=== PATIENT | male | born 1930 | race Caucasian/White ===

== ENCOUNTER 2017-10-12 06:49 | Inpatient (IN) | payer BC ==
[~2017-10-12] VITALS: Ht 175.3 cm; Wt 74.4 kg
[2017-10-12] VITALS (9 sets, daily range): BP systolic 122–143; BP diastolic 51–78
--- NOTE | 2017-10-12 07:00 | NUR ---
TO BED 7 AN 89 YO MALE PATIENT BIBRA 881 FROM [facility] FOR WITNESSED GLF. PT C/O LEFT ELBOW AND L WRIST PAIN, NOTED ABDRASION AND BUMP POSTERIOR HEAD. LEFT LEG SHORTENING. VSS. NAD NOTED. PLACED ON CARDIAC AND VS MONITORING. COMFORT MEASURES RENDEERED.
[2017-10-12] MEDS ORDERED: QUET25TA PO (07:06)
[2017-10-12] MEDS ORDERED: MELA3TAB PO (07:06)
[2017-10-12] MEDS ORDERED: NAPH15DR EACHEYE (07:06)
[2017-10-12] MEDS ORDERED: SERT25TA PO (07:06)
[2017-10-12] MEDS ORDERED: DIVA500T7 PO (07:06)
[2017-10-12] MEDS ORDERED: MORPHINE SULFATE INJ 2 MG/ML DISP.SYRIN ONE ×3 (07:08→08:24)
[2017-10-12] MEDS ORDERED: ONDANSETRON HCL/PF 4 MG/2 ML VIAL ONE (07:08)
--- NOTE | 2017-10-12 07:15 | NUR ---
STARTED A SALINE LOCK ON THE RFA G20, BLOOD DRAWN AND SENT TO LAB.
--- NOTE | 2017-10-12 07:19 | NUR ---
MEDICATED PATIENT ORDERED BY DR TIRADO.
[2017-10-12] MEDS ORDERED: ONDANSETRON HCL/PF 4 MG/2 ML VIAL IVP ONE (07:30)
[2017-10-12] MEDS ORDERED: MORPHINE SULFATE INJ 2 MG/ML DISP.SYRIN IV ONE ×2 (07:30→08:00)
[2017-10-12 07:33] LABS: HEMATOCRIT 32 % (39-51); HEMOGLOBIN 10.8 g/dL (13.5-17.5); LYMPHOCYTES # (AUTO) 0.5 /CMM (0.8-4.8); LYMPHOCYTES % (AUTO) 3.9 % (20.0-44.0); MEAN CORPUSCULAR HEMOGLOBIN 34 PG (26.0-33.0); MEAN CORPUSCULAR HGB CONC 34 g/dl (31.0-36.0); MEAN CORPUSCULAR VOLUME 98 fL (80-96); MONOCYTES # (AUTO) 0.5 /CMM (0.1-1.30); NEUTROPHILS % (AUTO) 92.1 % (43.0-81.0); PLATELET COUNT (AUTO) 118 /CMM (150-450); RDW COEFFICIENT OF VARIATION 13.3 (11.5-15.0); RED BLOOD CELL COUNT(AUTO) 3.21 MIL/uL (4.5-6.0); WHITE BLOOD COUNT (AUTO) 11.9 K/uL (4.3-11.0)
--- NOTE | 2017-10-12 07:36 | NUR ---
PATIENT TAKEN TO CT VIA STRETCHER.
[2017-10-12 07:42] LABS: CALCIUM, SERUM 8.9 mg/dL (8.5-10.1); CARBON DIOXIDE 27 mmol/L (21-32); CHLORIDE 101 mmol/L (98-107); CREATININE 0.9 mg/dL (0.6-1.3); GLUCOSE 115 mg/dL (74-106); POTASSIUM 4.1 mmol/L (3.5-5.1); SODIUM SERUM 137 mmol/L (136-145); UREA NITROGEN, BLOOD 19 mg/dL (7-18)
[2017-10-12 07:49] LABS: INR 0.97 (0.87-1.13); PROTHROMBIN TIME 10.1 SECS (9.5-12.7)
[2017-10-12] MEDS ORDERED: HYDROMORPHONE MDV 0.5 MG in IV D5W 50 ML IV ONE (08:00)
[2017-10-12] MEDS ORDERED: HYDROMORPHONE INJ 2 MG/ML DISP.SYRIN IV ONE (08:00)
--- NOTE | 2017-10-12 08:19 | NUR ---
PATIENT RETURNED FROM CT IN STABLE CONDITION.
--- NOTE | 2017-10-12 08:34 | NUR ---
PAGED DR BAGLEY FOR ADMISSION
--- NOTE | 2017-10-12 08:35 | NUR ---
PATIENT STILL HAVING SEVERE PAIN, SECOND DOSE OF MORPHINE ADMINISTERED.
--- NOTE | 2017-10-12 08:47 | NUR ---
REPORT GIVEN TO HONG FISH FOR SOLOMON UPON ADMISSION.
[2017-10-12] MEDS ORDERED: DIVA125C5 PO (08:54)
[2017-10-12] MEDS ORDERED: MAGNESIUM HYDROXIDE 30 ML UDC PO PRN (09:30)
[2017-10-12] MEDS ORDERED: HYDROMORPHONE INJ 2 MG/ML DISP.SYRIN IV PRN (09:30)
[2017-10-12] MEDS ORDERED: MAG HYDROX/AL HYDROX/SIMETH 30 ML UDC PO PRN (09:30)
[2017-10-12] MEDS ORDERED: ACETAMINOPHEN 325 MG TABLET PO PRN (09:30)
[2017-10-12] MEDS ORDERED: ONDANSETRON HCL/PF 4 MG/2 ML VIAL IVP PRN (09:30)
--- NOTE | 2017-10-12 10:00 | NUR ---
PATIENT TRANSPORTED TO ROOM 304-1 VIA STRETCHER FOR ADMISSION. RN, HONG TO PROVIDE SOLOMON.
[2017-10-12 10:48] LABS: IRON, SERUM 66 ug/dl (50-175); TOTAL IRON BINDING CAPACITY 227 ug/dl (250-450)
--- NOTE | 2017-10-12 11:00 | NUR ---
MS RN RECEIVED A NEW ADMISSION FROM ER, AWAKE, DEMENTED/CONFUSE, CAME IN W/ DX OF FRACTURES LEFT ELBOW AND HIP, S/P FALL FROM ASSISTED LIVING, NOT IN FORM OF DISTRESS. PATIENT W/ LEFT ELBOW SLING AND BANDAGE, V/S TAKEN , WILL MONITOR PATIENT'S CONDITION, REPOSITIONED FOR COMFORT.
[2017-10-12 11:17] LABS: FERRITIN 162 ng/mL (8-388); THYROID STIMULATING HORMONE 2.712 uIU/mL (0.358-3.74)
[2017-10-12 12:00] LABS: VALPROIC ACID 20 ug/mL (50-100)
--- NOTE | 2017-10-12 12:00 | NUR ---
MS RN WAITING FOR COURY TO EVALUATE PATIENT.
[2017-10-12 12:53] LABS: PHOSPHORUS 2.7 mg/dL (2.5-4.9)
--- NOTE | 2017-10-12 13:00 | NUR ---
MS RN WAS SEEN BY MUNA DESIR, WILL HAVE SX AT 430 PM TODAY.
[2017-10-12 13:52] LABS: MAGNESIUM 1.8 mg/dL (1.8-2.4)
[2017-10-12 14:08] LABS: TROPONIN I < 0.017 ng/mL (0.00-0.056)
[2017-10-12] MEDS ORDERED: ANESTHESIA TRAY IN PYXIS 1 EA TRAY MC ONE (14:56)
--- NOTE | 2017-10-12 16:00 | NUR ---
MS RN PATIENT WENT DOWN TO SX, DPOA NOTIFIED.
[2017-10-12] MEDS ORDERED: BUPIVACAINE 0.5 % PF 150 MG/30 ML VIAL ONE (16:21)
[2017-10-12] MEDS ORDERED: BACITRACIN 50000 UNITS/VIAL ONE (16:22)
[2017-10-12] MEDS ORDERED: HYDROMORPHONE INJ 2 MG/ML DISP.SYRIN ONE (16:41)
--- NOTE | 2017-10-12 18:39 | NUR ---
MS RN JUST CAME BACK FROM SURGERY, AROUSALBLE ,NOT IN ANY FORM OF DISTRES, V/S STABLE , ON O2 2 LITERS, SX SITE W/ DRESSING DRY AND INTACT, NO S/S OF PAIN AT THIS TIME, WILL MONITOR PATIENT.
--- NOTE | 2017-10-12 19:00 | NUR ---
MS RN ENDORSED TO ENTERPRISE ACCOUNT MANAGER TO GIVE LOVENOX TONIGHT, ALL NEEDS ATTENDED.
--- NOTE | 2017-10-12 19:30 | NUR ---
MS RN NOTES RECEIVED ON BED SLEEPING,S/P LEFT HIP ORIF,DRESSING INTACT AND DRY,LEFT ARM ON SLING FOR IMMOBILIZATION.SALINE LOCK RIGHT RFA INTACT AND PATENT.DVT PUMP IN USED FOR DVT PROHYLAXIS.VITALS MONITORED.CALL LIGHT IN REACH,NEEDS ANTICIPATED
[2017-10-12] MEDS: IV NS 0.9% 1,000 ML IV PRN (19:38)
--- NOTE | 2017-10-12 19:38 | NUR ---
MS RN NOTES STARTED ON IVF NS 1L 75ML/HR RATE VIA PUMP.
--- NOTE | 2017-10-12 19:47 | NUR ---
MS RN NOTES STARTED ON LOVENOX 30MG SQ GIVEN VIA RIGHT LOWER ABDOMEN ORDERED,OK TO GIVE POST PER PRECIOUS JACINTOP.
[2017-10-12] MEDS: ENOXAPARIN SODIUM 30 MG/0.3 ML DISP.SYRIN SQ SCH (19:48)
[2017-10-12] MEDS: FAMOTIDINE/PF INJ 20 MG/2 ML VIAL IV SCH (20:40)
--- NOTE | 2017-10-12 22:30 | NUR ---
MS RN NOTES EVENING CARE ADMINISTERED.OFFERED PAIN MEDICINE BUT REFUSED
[2017-10-13] VITALS (8 sets, daily range): BP systolic 98–115; BP diastolic 45–57
[2017-10-13] MEDS: ANCEF 1 GM/50 ML D5W IV SCH ×6 (01:12→17:15)
[2017-10-13] MEDS: FENTANYL PF 100MCG/2ML AMPUL IV PRN ×3 (02:00→15:17)
--- NOTE | 2017-10-13 02:00 | NUR ---
MS RN NOTES PAIN MANAGEMENT STARTED TO WAKE,MOANSRESTLESS,MEDICATED WITH SUBLIMAZE 30MCG IV ORDERED
--- NOTE | 2017-10-13 03:00 | NUR ---
MS RN NOTES SLEEPING THIS TIME
[2017-10-13] MEDS: HYDROCODONE/APAP 5/325MG 1 EACH TABLET PO PRN ×2 (03:40→16:18)
--- NOTE | 2017-10-13 03:43 | NUR ---
MS RN NOTES AWAKE,TRYING TO TAKE OUT HIS PATIENT GOWN,RESTLESS.MEDICATED WITH NORCO 5/325,1TAB PO FOR MODERATE PAIN.REPOSITION,DIAPER CHANGED.
--- NOTE | 2017-10-13 04:00 | NUR ---
MS RN NOTES IV SITE LEAKING,NEW IV SALINE LOCK PLACE ON RIGHT WRIST #22,SAME IVF INFUSING VIA IV PUMP
[2017-10-13 06:24] LABS: BASOPHILS % (AUTO) 0.2 % (0.0-2.0); HEMATOCRIT 22 % (39-51); HEMOGLOBIN 7.5 g/dL (13.5-17.5); LYMPHOCYTES # (AUTO) 0.7 /CMM (0.8-4.8); LYMPHOCYTES % (AUTO) 8.5 % (20.0-44.0); MEAN CORPUSCULAR HEMOGLOBIN 34 PG (26.0-33.0); MEAN CORPUSCULAR HGB CONC 34 g/dl (31.0-36.0); MEAN CORPUSCULAR VOLUME 98 fL (80-96); MONOCYTES # (AUTO) 0.8 /CMM (0.1-1.30); MONOCYTES % (AUTO) 10.2 % (2.0-12.0); NEUTROPHILS # (AUTO) 6.3 /CMM (1.8-8.9); NEUTROPHILS % (AUTO) 81.1 % (43.0-81.0); PLATELET COUNT (AUTO) 102 /CMM (150-450); RDW COEFFICIENT OF VARIATION 13.7 (11.5-15.0); RED BLOOD CELL COUNT(AUTO) 2.24 MIL/uL (4.5-6.0); WHITE BLOOD COUNT (AUTO) 7.7 K/uL (4.3-11.0)
--- NOTE | 2017-10-13 06:25 | NUR ---
MS RN NOTES STILL WITH ON AND OFF PAIN ESPECIALLY WHEN REPOSITIONING.PAIN MANAGEMENT EFFECTIVE,IVF INFUSING,SITE PATENT.DRESSING TO LEFT HIP INTACT,SLING IN USE ON LEFT ARM.IN NO ACUTE DISTRESS.WILL ENDORSE TO DAY NURSE FOR SOLOMON.
[2017-10-13 06:43] LABS: CALCIUM, SERUM 8.2 mg/dL (8.5-10.1); CARBON DIOXIDE 24 mmol/L (21-32); CHLORIDE 104 mmol/L (98-107); CREATININE 0.9 mg/dL (0.6-1.3); GLUCOSE 133 mg/dL (74-106); POTASSIUM 4.4 mmol/L (3.5-5.1); SODIUM SERUM 136 mmol/L (136-145); UREA NITROGEN, BLOOD 23 mg/dL (7-18)
[2017-10-13 06:57] LABS: CHOLESTEROL 148 mg/dL (<200); HDL CHOLESTEROL 67 mg/dL (40-60); LDL 69 mg/dL (0-99); THYROID STIMULATING HORMONE 0.558 uIU/mL (0.358-3.74); TRIGLYCERIDES 32 mg/dL (30-150)
--- NOTE | 2017-10-13 07:00 | NUR ---
RN INITIAL NOTES REPORT RECEIVED AT THE BEDSIDE. PATIENT IS RESTING COMFORTABLY IN BED. NO SOB OR DISTRESS NOTED AT THIS TIME. PATIENT REPORTS TOLERABLE PAIN AT THIS TIME. BED IN A LOW POSITION, CALL LIGHT WITHIN PATIENT REACH. WILL CONTINUE TO MONITOR.
--- NOTE | 2017-10-13 08:38 | NUR ---
PATIENT WAS REPOSITIONED TO HIS BACK, BUT PATIENT TENDS TO FAVOR HIS RIGHT SIDE AND KEEPS TURNING TO THE RIGHT. PLACED PILLOWS TO BLOCK PT MOVEMENT, BUT PATIENT IS STILL TURNING TO THE RIGHT. UNABLE TO POSITION TO THE LEFT DUE TO SURGERY ON LEFT HIP LAST NIGHT. WILL CONTINUE TO ATTEMPT TO MOVE PATIENT.
[2017-10-13] MEDS: FAMOTIDINE/PF INJ 20 MG/2 ML VIAL IV SCH ×2 (08:42→21:14)
[2017-10-13] MEDS: ENOXAPARIN SODIUM 30 MG/0.3 ML DISP.SYRIN SQ SCH (08:47)
[2017-10-13] MEDS: IV NS 0.9% 1,000 ML IV PRN (10:53)
[2017-10-13] MEDS: DIVALPROEX SODIUM 125 MG CAP.SPRINK PO SCH ×2 (13:07→16:17)
[2017-10-13] MEDS ORDERED: Z GUARD REMEDY 2 OZ OINT TP PRN (13:30)
--- NOTE | 2017-10-13 20:15 | NUR ---
MS RN NOTES RECEIVED ON BED SLEEPING,AROUSABLE TO VERBAL STIMULI,S/P LEFT HIP ORIF ON 10/12.DRESSING INTACT AND DRY.LEFT ELBOW WITH SLING IN PLACE. DVT PUMP IN USED FOR DVT PROHYLAXIS.WITH IVF NS 75ML/HR RATE,SITE PATENT ON RIGHT WRIST.WILL CONTINUE TO MONITOR STATUS.
[2017-10-13] MEDS: QUETIAPINE FUMARATE 25 MG TABLET PO SCH (21:15)
--- NOTE | 2017-10-13 21:30 | NUR ---
MS RN NOTES EVENING CARE RENDERED,TOLERATED WELL.REPOSITIONED.
--- NOTE | 2017-10-14 01:00 | NUR ---
MS RN NOTES SLEEPING,KEPT WARM AND COMFORTABLE.
[2017-10-14] MEDS: HYDROCODONE/APAP 5/325MG 1 EACH TABLET PO PRN ×2 (03:04→11:06)
--- NOTE | 2017-10-14 03:04 | NUR ---
MS RN NOTES AWAKE,RESTLESS,MEDICATED WITH NORCO 5/325MG,1TAB PO ORDERED FOR MODERATE PAIN
[2017-10-14] MEDS: IV NS 0.9% 1,000 ML IV PRN (03:15)
--- NOTE | 2017-10-14 03:15 | NUR ---
MS RN NOTES/NEW IV BAG NS 1 L/HUNG
--- NOTE | 2017-10-14 06:46 | NUR ---
MS RN NOTES ON BED A/O X1-2,PAIN MANAGEMENT EFFECTIVE,REFUSED SCD FOR THE NIGHT,ON LOVENOX THIS MORNING.IVF INFUSING,IN NO ACUTE DISTRESS.WILL ENDORSE TO DAY NURSE FOR SOLOMON.
[2017-10-14 07:28] LABS: BASOPHILS % (AUTO) 0.2 % (0.0-2.0); HEMATOCRIT 21 % (39-51); HEMOGLOBIN 7.1 g/dL (13.5-17.5); LYMPHOCYTES # (AUTO) 0.8 /CMM (0.8-4.8); MEAN CORPUSCULAR HEMOGLOBIN 33 PG (26.0-33.0); MEAN CORPUSCULAR HGB CONC 34 g/dl (31.0-36.0); MEAN CORPUSCULAR VOLUME 97 fL (80-96); MONOCYTES # (AUTO) 0.5 /CMM (0.1-1.30); MONOCYTES % (AUTO) 9.4 % (2.0-12.0); NEUTROPHILS # (AUTO) 4.4 /CMM (1.8-8.9); NEUTROPHILS % (AUTO) 76.4 % (43.0-81.0); PLATELET COUNT (AUTO) 75 /CMM (150-450); RDW COEFFICIENT OF VARIATION 14.1 (11.5-15.0); RED BLOOD CELL COUNT(AUTO) 2.12 MIL/uL (4.5-6.0); WHITE BLOOD COUNT (AUTO) 5.7 K/uL (4.3-11.0)
--- NOTE | 2017-10-14 07:33 | NUR ---
MS RN OPENING NOTES RECEIVED PATIENT IN STABLE CONDITION. PATIENT IS RESTING IN BED IN NO APPARENT DISTRESS. BEDSIDE RAILS ARE UP X2. BED IS LOCKED AND LOWERED. WILL CONTINUE TO MONITOR.
[2017-10-14 07:55] LABS: ALANINE AMINOTRANSFERASE 31 U/L (12-78); ALBUMIN 2.3 g/dL (3.4-5.0); ALKALINE PHOSPHATASE 65 U/L (46-116); ASPARTATE AMINOTRANSFERASE 74 U/L (15-37); BILIRUBIN,TOTAL 0.5 mg/dL (0.2-1.0); CARBON DIOXIDE 28 mmol/L (21-32); CHLORIDE 108 mmol/L (98-107); CREATININE 0.9 mg/dL (0.6-1.3); GLUCOSE 96 mg/dL (74-106); MAGNESIUM 1.8 mg/dL (1.8-2.4); PHOSPHORUS 2.3 mg/dL (2.5-4.9); POTASSIUM 3.9 mmol/L (3.5-5.1); SODIUM SERUM 141 mmol/L (136-145); UREA NITROGEN, BLOOD 20 mg/dL (7-18)
[2017-10-14 08:00] VITALS: BP 112/50
[2017-10-14] MEDS: DIVALPROEX SODIUM 125 MG CAP.SPRINK PO SCH ×3 (08:21→16:12)
[2017-10-14] MEDS: NAPHAZOLINE HCL/PHENIR MAL 15 ML BOTTLE EACHEYE SCH (08:22)
[2017-10-14] MEDS: SERTRALINE HCL 25 MG TABLET PO SCH (08:22)
[2017-10-14] MEDS: FAMOTIDINE/PF INJ 20 MG/2 ML VIAL IV SCH ×2 (08:23→21:07)
[2017-10-14] MEDS: ENOXAPARIN SODIUM 30 MG/0.3 ML DISP.SYRIN SQ SCH (08:23)
[2017-10-14 08:30] LABS: LYMPHOCYTES % (MANUAL) 16 % (16-48); MONOCYTES % (MANUAL) 10 % (0-11.0); NEUTROPHILS % (MANUAL) 74 (42-76)
--- NOTE | 2017-10-14 08:40 | NUR ---
HELD LOVENOX. PLATELETS 75.
--- NOTE | 2017-10-14 13:00 | NUR ---
PATIENT TOO SEDATED TO TAKE MEDICATION.
[2017-10-14 14:04] VITALS: BP 114/62
[2017-10-14 14:19] VITALS: BP 94/44
[2017-10-14 16:00] VITALS: BP 106/51
[2017-10-14] MEDS ORDERED: NEUTRA PHOS 1 POWD.PACKET NG ONE (16:00)
[2017-10-14 16:53] VITALS: BP 117/54
--- NOTE | 2017-10-14 18:42 | NUR ---
MS RN CLOSING NOTES PATIENT IS IN STABLE CONDITION. IN NO APPARENT DISTRESS. PATIENT IS RESTING IN BED. BEDSIDE RAILS ARE UP X2. BED IS LOCKED AND LOWERED. CALL LIGHT IS WITHIN REACH. WILL ENDORSE CARE TO COMPUTER SCIENCE TEACHER NURSE FOR SOLOMON.
[2017-10-14 20:00] VITALS: BP 116/61
[2017-10-14] MEDS: QUETIAPINE FUMARATE 25 MG TABLET PO SCH (21:07)
[2017-10-14] MEDS: FENTANYL PF 100MCG/2ML AMPUL IV PRN (21:08)
[2017-10-15 06:30] LABS: BASOPHILS % (AUTO) 0.3 % (0.0-2.0); EOSINOPHILS % (AUTO) 0.2 % (0.0-6.0); HEMATOCRIT 24 % (39-51); HEMOGLOBIN 8.1 g/dL (13.5-17.5); LYMPHOCYTES # (AUTO) 0.8 /CMM (0.8-4.8); LYMPHOCYTES % (AUTO) 13.9 % (20.0-44.0); MEAN CORPUSCULAR HEMOGLOBIN 32 PG (26.0-33.0); MEAN CORPUSCULAR HGB CONC 33 g/dl (31.0-36.0); MEAN CORPUSCULAR VOLUME 96 fL (80-96); MONOCYTES # (AUTO) 0.4 /CMM (0.1-1.30); MONOCYTES % (AUTO) 7.4 % (2.0-12.0); NEUTROPHILS # (AUTO) 4.7 /CMM (1.8-8.9); NEUTROPHILS % (AUTO) 78.2 % (43.0-81.0); PLATELET COUNT (AUTO) 78 /CMM (150-450); RDW COEFFICIENT OF VARIATION 15.5 (11.5-15.0); RED BLOOD CELL COUNT(AUTO) 2.51 MIL/uL (4.5-6.0)
--- NOTE | 2017-10-15 06:35 | NUR ---
MS RN NOTE PATIENT STABLE. NO DISTRESS OR DISCOMFORT AT THIS TIME. ALL NEEDS MET AND ATTENDED TO. WILL ENDORSE TO DAY SHIFT FOR SOLOMON.
[2017-10-15 06:53] LABS: ALANINE AMINOTRANSFERASE 27 U/L (12-78); ALBUMIN 2.2 g/dL (3.4-5.0); ALKALINE PHOSPHATASE 63 U/L (46-116); ASPARTATE AMINOTRANSFERASE 60 U/L (15-37); BILIRUBIN,TOTAL 0.6 mg/dL (0.2-1.0); CALCIUM, SERUM 8.1 mg/dL (8.5-10.1); CARBON DIOXIDE 28 mmol/L (21-32); CHLORIDE 108 mmol/L (98-107); CREATININE 0.8 mg/dL (0.6-1.3); GLUCOSE 95 mg/dL (74-106); MAGNESIUM 1.8 mg/dL (1.8-2.4); PHOSPHORUS 2.7 mg/dL (2.5-4.9); SODIUM SERUM 142 mmol/L (136-145); UREA NITROGEN, BLOOD 19 mg/dL (7-18)
--- NOTE | 2017-10-15 07:35 | NUR ---
RN OPENING NOTES RECEIVED PATIENT IN BED, ALERT TO SELF, NOTED WITH NO FACIAL GRIMACING, NO SOB, BREATHING EVEN AND UNLABORED. ALL PATIENT'S NEEDS ATTENDED TO. PLACED CALL LIGHT WITHIN EASY REACH. BED PLACED IN LOW POSITION AND LOCKED IN PLACE. WILL CONTINUE TO MONITOR PT.
[2017-10-15 08:00] VITALS: BP 104/42
[2017-10-15] MEDS: DIVALPROEX SODIUM 125 MG CAP.SPRINK PO SCH ×3 (08:46→17:07)
[2017-10-15] MEDS: FAMOTIDINE/PF INJ 20 MG/2 ML VIAL IV SCH ×2 (08:46→21:47)
[2017-10-15] MEDS: SERTRALINE HCL 25 MG TABLET PO SCH (08:46)
[2017-10-15] MEDS: ENOXAPARIN SODIUM 30 MG/0.3 ML DISP.SYRIN SQ SCH (08:48)
[2017-10-15] MEDS: NAPHAZOLINE HCL/PHENIR MAL 15 ML BOTTLE EACHEYE SCH (08:53)
[2017-10-15 10:15] LABS: LYMPHOCYTES % (MANUAL) 2 % (16-48); MONOCYTES % (MANUAL) 5 % (0-11.0); NEUTROPHILS % (MANUAL) 93 (42-76)
--- NOTE | 2017-10-15 11:39 | NUR ---
RN NOTES PATIENT NOTED TO BE SCRATCHING TOP OF HEAD, UPON ASSESSMENT, NOTED WITH SUPERFICIAL ABRASION, NO BLEEDING, NO DRAINAGE, NO SCARRING NOTED. INFORMED PULMONARY SPECIALIST PRECIOUS WITH ORDER FOR WOUND CONSULT. ALL ORDERS NOTED AND CARRIED OUT. EDUCATED PATIENT NOT TO SCRATCH AREA. WILL CONTINUE TO MONITOR.
[2017-10-15] MEDS: HYDROCODONE/APAP 5/325MG 1 EACH TABLET PO PRN ×2 (13:29→21:47)
[2017-10-15 16:00] VITALS: BP 118/59
--- NOTE | 2017-10-15 18:50 | NUR ---
RN CLOSING NOTES PATIENT IN BED, AWAKE, NO C/O PAIN, NOTED WITH NO FACIAL GRIMACING, NO SOB, BREATHING EVEN AND UNLABORED. SAFETY PRECAUTIONS IN PLACE, BED PLACED IN LOW POSITION AND LOCKED IN PLACE. ALL PATIENT'S NEEDS ATTENDED TO. CALL LIGHT PLACED WITHIN EASY REACH.
[2017-10-15 20:00] VITALS: BP 116/51
[2017-10-15] MEDS: QUETIAPINE FUMARATE 25 MG TABLET PO SCH (21:47)
--- NOTE | 2017-10-16 | NUR ---
MS RN NOTE PATIENT NPO FOR LEFT ELBOW ORIF IN AM. CONSENT SIGNED AND IN CHART.
--- NOTE | 2017-10-16 06:19 | NUR ---
RN CLOSING NOTES PATIENT IN BED, AWAKE, NO C/O PAIN, NOTED WITH NO FACIAL GRIMACING, NO SOB, BREATHING EVEN AND UNLABORED. SAFETY PRECAUTIONS IN PLACE. NPO SINCE MIDNIGHT FOR LEFT ELBOW ORIF TODAY. CONSENT SIGNED AND IN CHART. BED PLACED IN LOW POSITION AND LOCKED IN PLACE. ALL PATIENT'S NEEDS ATTENDED TO. CALL LIGHT PLACED WITHIN EASY REACH. WILL ENDORSE TO DAY SHIFT FOR SOLOMON.
[2017-10-16 06:40] LABS: CALCIUM, SERUM 8.4 mg/dL (8.5-10.1); CARBON DIOXIDE 28 mmol/L (21-32); CHLORIDE 105 mmol/L (98-107); CREATININE 0.7 mg/dL (0.6-1.3); GLUCOSE 95 mg/dL (74-106); INR 0.94 (0.87-1.13); POTASSIUM 3.9 mmol/L (3.5-5.1); PROTHROMBIN TIME 9.8 SECS (9.5-12.7); SODIUM SERUM 139 mmol/L (136-145); UREA NITROGEN, BLOOD 16 mg/dL (7-18)
[2017-10-16 06:43] LABS: BASOPHILS % (AUTO) 0.3 % (0.0-2.0); EOSINOPHILS # (AUTO) 0.1 /CMM (0.0-0.7); EOSINOPHILS % (AUTO) 1.1 % (0.0-6.0); HEMATOCRIT 26 % (39-51); HEMOGLOBIN 8.7 g/dL (13.5-17.5); LYMPHOCYTES # (AUTO) 0.9 /CMM (0.8-4.8); LYMPHOCYTES % (AUTO) 15.8 % (20.0-44.0); MEAN CORPUSCULAR HEMOGLOBIN 32 PG (26.0-33.0); MEAN CORPUSCULAR HGB CONC 33 g/dl (31.0-36.0); MEAN CORPUSCULAR VOLUME 96 fL (80-96); MONOCYTES # (AUTO) 0.5 /CMM (0.1-1.30); NEUTROPHILS # (AUTO) 4.2 /CMM (1.8-8.9); NEUTROPHILS % (AUTO) 73.8 % (43.0-81.0); PLATELET COUNT (AUTO) 109 /CMM (150-450); RDW COEFFICIENT OF VARIATION 15.4 (11.5-15.0); RED BLOOD CELL COUNT(AUTO) 2.72 MIL/uL (4.5-6.0); WHITE BLOOD COUNT (AUTO) 5.7 K/uL (4.3-11.0)
--- NOTE | 2017-10-16 07:35 | NUR ---
RN INITIAL NOTES PATIENT RECEIVED IN BED, ASLEEP BUT EASILY AROUSABLE, ALERT TO SELF, NOTED WITH NO FACIAL GRIMACING AT THIS TIME, WITH NO SOB, BREATHING EVEN AND UNLABORED. ALL PATIENT'S NEEDS ATTENDED TO, NPO FOR NOW. PLACED CALL LIGHT WITHIN EASY REACH. SAFETY PRECAUTIONS IN PLACE. WILL CONTINUE TO MONITOR.
[2017-10-16 08:00] VITALS: BP 120/64
[2017-10-16] MEDS: ENOXAPARIN SODIUM 30 MG/0.3 ML DISP.SYRIN SQ SCH (09:00)
[2017-10-16] MEDS: DIVALPROEX SODIUM 125 MG CAP.SPRINK PO SCH ×3 (09:00→16:14)
[2017-10-16] MEDS: SERTRALINE HCL 25 MG TABLET PO SCH (09:00)
[2017-10-16] MEDS: FAMOTIDINE/PF INJ 20 MG/2 ML VIAL IV SCH ×2 (09:00→22:42)
[2017-10-16] MEDS: NAPHAZOLINE HCL/PHENIR MAL 15 ML BOTTLE EACHEYE SCH (09:49)
--- NOTE | 2017-10-16 10:55 | NUR ---
WOUND CARE CONSULT: PT PRESENTS WITH DRY ABRASION TO TOP OF HEAD. PT NOTED TO BE SCRATCHING HIS HEAD. PT ALSO NOTED TO HAVE SURGICAL DRESSING TO LEFT HIP WITH OPEN BLISTER PROXIMAL TO LEFT HIP DRESSING. LEFT ARM DRESSING/SLING AND LEFT HIP SURGICAL DSGS LEFT UNDISTURBED. RECOMMENDATIONS MADE FOR BLISTER AND SKIN PROTECTION. DISCUSSED WITH NURSING STAFF. FIRST STEP MATTRESS ON ORDER. ALL SKIN PROTECTION MEASURES IN PLACE. WILL SEE PRN. ANTOINE IN AGREEMENT WITH PLAN OF CARE. Addendum: 10/16/17 at 1058 by NOELLE GALVAN WNDNU Amended: Links added.
--- NOTE | 2017-10-16 11:27 | NUR ---
RN NOTES PATIENT PICKED UP BY OR STAFF FOR LEFT ELBOW ORIF. [facility] WILL CONTINUE TO MONITOR.
[2017-10-16] MEDS ORDERED: BACITRACIN 50000 UNITS/VIAL ONE (11:33)
[2017-10-16] MEDS ORDERED: BUPIVACAINE 0.5 % PF 150 MG/30 ML VIAL ONE (11:33)
[2017-10-16] MEDS ORDERED: FENTANYL PF 100MCG/2ML AMPUL ONE (11:41)
--- NOTE | 2017-10-16 12:15 | NUR ---
RN NOTES PATIENT BACK FROM OR. PER OR STAFF SURGERY WILL BE RESCHEDULED FOR TOMORROW, TIME TBD AND WILL BE POSSIBLY PERFORMED BY DR. OLVERA.. BRIAN GAY NOTIFIED, UNDERSTANDS AND AGREES WITH PLAN.PT IN BED, ASLEEP BUT CAN BE EASILY AWOKEN, NOTED WITH NO SOB, BREATHING EVEN AND UNLABORED, COMFORTABLE. WILL CONTINUE TO MONITOR.SAFETY PRECAUTIONS IN PLACE.
[2017-10-16 16:00] VITALS: BP 120/66
[2017-10-16] MEDS: HYDROCODONE/APAP 5/325MG 1 EACH TABLET PO PRN (16:15)
--- NOTE | 2017-10-16 18:47 | NUR ---
RN CLOSING NOTES PATIENT UP IN BED, ALERT TO SELF, VERBALLY RESPONSIVE, NOTED WITH NO FACIAL GRIMACING. NO SOB, BREATHING EVEN AND UNLABORED. ALL PATIENT'S NEEDS ATTENDED TO. SAFETY PRECAUTIONS IN PLACE. CALL LIGHT PLACED WITHIN EASY REACH.
[2017-10-16] MEDS: FENTANYL PF 100MCG/2ML AMPUL IV PRN (19:58)
[2017-10-16 20:00] VITALS: BP 119/51
[2017-10-16 21:05] VITALS: BP 119/61
[2017-10-16] MEDS: QUETIAPINE FUMARATE 25 MG TABLET PO SCH (22:42)
[2017-10-17] MEDS ORDERED: ERGOCALCIFEROL (VITAMIN D 2) 50,000 UNIT CAPSULE PO SCH (07:30)
--- NOTE | 2017-10-17 07:30 | NUR ---
RECEIVED PT. IN AM ALERT AND ORIENTED X1-2.PT, NPO FOR SURGERY TODAY.
[2017-10-17 08:00] VITALS: BP 140/59
[2017-10-17] MEDS: DIVALPROEX SODIUM 125 MG CAP.SPRINK PO SCH ×4 (09:00→18:45)
[2017-10-17] MEDS: FAMOTIDINE/PF INJ 20 MG/2 ML VIAL IV SCH ×2 (09:19→21:33)
[2017-10-17] MEDS: NAPHAZOLINE HCL/PHENIR MAL 15 ML BOTTLE EACHEYE SCH (09:19)
--- NOTE | 2017-10-17 11:45 | NUR ---
RN WITH CALL TO OR-REQUESTING WHEN PT. TO BE PICKED UP.INFORMED BY SARAI IN OR THAT SURG. HAD BEEN CANCELLED.CALL TO DR. PERDUE,S OFFICE,THEN SHORTLY AFTER. MUNA DESIR HERE AND STATED SURGERY TO BE TOMORROW.MUNA JIMENES FOR DR. TELLEZ PUT IN CALL TO PT,S DPOA AND INFORMED HIM SURGERY ON ELBOW TO BE DONE TOMORROW.
[2017-10-17] MEDS: SERTRALINE HCL 25 MG TABLET PO SCH (13:57)
[2017-10-17] MEDS: ENOXAPARIN SODIUM 30 MG/0.3 ML DISP.SYRIN SQ SCH (13:58)
[2017-10-17] MEDS: HYDROCODONE/APAP 5/325MG 1 EACH TABLET PO PRN ×2 (14:11→23:47)
--- NOTE | 2017-10-17 18:00 | NUR ---
PT.STARTED ON ROUTINE MEDS AFTER COURY HERE AND A LITTLE RESTLESS AND STATES HURTING,MEDICATED WITH NORCO.
--- NOTE | 2017-10-17 19:30 | NUR ---
RN OPENING NOTES PATIENT IS SLEEPING IN BED, EASY TO AROUSE, ALERT AND ORIENTED X1. NO C/O PAIN AT THIS TIME. NO SOB NOTED. RESPIRATIONS EVEN AND UNLABORED. IV ACCESS ON RIGHT AC PATENT AND INTACT, FLUSHING WELL WITH NS. BED IN LOW AND LOCKED POSITION. SIDE RAILSX2. CALL LIGHT WITHIN EASY REACH. WILL CONTINUE TO MONITOR AND ASSESS DURING THE SHIFT.
[2017-10-17 20:00] VITALS: BP 120/62
[2017-10-17] MEDS: QUETIAPINE FUMARATE 25 MG TABLET PO SCH (21:33)
--- NOTE | 2017-10-18 06:45 | NUR ---
RN CLOSING NOTES PATIENT IS SLEEPING IN BED, EASY TO AROUSE, ALERT AND ORIENTED X1. NO SOB NOTED. RESPIRATIONS EVEN AND UNLABORED. IV ACCESS ON RIGHT AC PATENT AND INTACT, FLUSHING WELL WITH NS. PATIENT IS REPOSITIONED AND SKIN IS DRY. ALL NEEDS ARE MET AND MEDICATIONS GIVEN PER MD ORDER. BED IN LOW AND LOCKED POSITION. SIDE RAILSX2. CALL LIGHT WITHIN EASY REACH. WILL ENDORSE TO RN DAY SHIFT FOR CONTINUITY OF CARE.
[2017-10-18 08:00] VITALS: BP 116/66
--- NOTE | 2017-10-18 08:00 | NUR ---
MS RN OPENING NOTES Patient in bed eyes closed, arousable, alert and oriented x1. Denied pain at this time, no facial grimacing noted. No SOB noted. Respiration even and unlabored. IV access on RAC patent and intact. No sign of infiltration or redness noted. Bed in low position and locked , side rails up X2. Call light placed within reach. Will continue to monitor accordingly.
[2017-10-18] MEDS: FAMOTIDINE/PF INJ 20 MG/2 ML VIAL IV SCH ×2 (08:56→21:17)
[2017-10-18] MEDS: DIVALPROEX SODIUM 125 MG CAP.SPRINK PO SCH ×3 (08:56→17:05)
[2017-10-18] MEDS: SERTRALINE HCL 25 MG TABLET PO SCH (08:56)
[2017-10-18] MEDS: ENOXAPARIN SODIUM 30 MG/0.3 ML DISP.SYRIN SQ SCH (08:57)
[2017-10-18] MEDS: NAPHAZOLINE HCL/PHENIR MAL 15 ML BOTTLE EACHEYE SCH (09:46)
--- NOTE | 2017-10-18 13:34 | NUR ---
ROSALIO TORO CALLED AND STATED THAT THE LEFT ELBOW ORIF PROCEDURE IS CANCELLED AND WILL BE RESCHEDULED TOMORROW AT 1600
--- NOTE | 2017-10-18 14:00 | NUR ---
ORDERED LUNCH TRAY AND FED PT-RESUMED PUREED DIET.
[2017-10-18 16:00] VITALS: BP 129/64
[2017-10-18] MEDS: HYDROCODONE/APAP 5/325MG 1 EACH TABLET PO PRN (17:05)
--- NOTE | 2017-10-18 18:00 | NUR ---
MS RN CLOSING NOTES Patient in bed awake, alert and oriented x1. No SOB noted. Respiration even and unlabored. IV access on RAC patent and intact. No sign of infiltration or redness noted. Bed in low position and locked , side rails up X2. Repositioned as ordered. Surgery rescheduled for tomorrow, Reynaldo (DPOA) made aware left message on voicemail. Call light placed within reach. Will continue to monitor accordingly.
--- NOTE | 2017-10-18 19:30 | NUR ---
MS RN NOTE: PATIENT RESTING IN BED, NO ACUTE DISTRESS NOTED. BREATHING EVEN AND UNLABORED, NO SOB NOTED. IV TO RAC IN PLACE. BED LOCKED AND IN LOWEST POSITION, CALL LIGHT IN REACH. WILL CONTINUE TO MONITOR.
[2017-10-18 20:00] VITALS: BP 107/49
[2017-10-18] MEDS: QUETIAPINE FUMARATE 25 MG TABLET PO SCH (21:17)
--- NOTE | 2017-10-19 00:35 | NUR ---
MS RN NOTE: PATIENT ON SURGERY SCHEDULE FOR LEFT ELBOW ORIF AT [address] TELLEZ. PATIENT ABLE TO EAT BREAKFAST, THEN NPO AFTER BREAKFAST. CONSENT SIGNED IN THE CHART. WILL CONTINUE TO MONITOR.
--- NOTE | 2017-10-19 06:05 | NUR ---
MS RN NOTE: PATIENT RESTING IN BED, NO ACUTE DISTRESS NOTED. BREATHING EVEN AND UNLABORED, NO SOB NOTED. IV TO RAC IN PLACE. CONSENT IN CHART FOR LEFT ELBOW ORIF TODAY AT 1630, TO BE NPO AFTER BREAKFAST. BED LOCKED AND IN LOWEST POSITION, CALL LIGHT IN REACH. WILL ENDORSE TO DAY NURSE TO CONTINUE WITH PLAN OF CARE.
--- NOTE | 2017-10-19 07:20 | NUR ---
RN OPEN NOTES RECEIVED REPORT FROM RACKER OCTAVE BOARD NURSE. PATIENT IS IN BED WITH HIS EYES CLOSED, EASILY AROUSED TO CALLING HIS NAME. NO SIGNS AND SYMPTOMS OF DISTRESS. WILL CONTINUE TO MONITOR AND ASSESS PATIENT.
[2017-10-19 08:00] VITALS: BP 128/77
[2017-10-19] MEDS: SERTRALINE HCL 25 MG TABLET PO SCH (08:42)
[2017-10-19] MEDS: DIVALPROEX SODIUM 125 MG CAP.SPRINK PO SCH ×3 (08:42→15:59)
[2017-10-19] MEDS: FAMOTIDINE/PF INJ 20 MG/2 ML VIAL IV SCH ×2 (08:42→21:09)
[2017-10-19 08:43] LABS: BASOPHILS # (AUTO) 0.1 /CMM (0.0-0.2); BASOPHILS % (AUTO) 0.7 % (0.0-2.0); EOSINOPHILS # (AUTO) 0.1 /CMM (0.0-0.7); EOSINOPHILS % (AUTO) 0.7 % (0.0-6.0); HEMATOCRIT 29 % (39-51); HEMOGLOBIN 9.7 g/dL (13.5-17.5); LYMPHOCYTES % (AUTO) 10.4 % (20.0-44.0); MEAN CORPUSCULAR HEMOGLOBIN 32 PG (26.0-33.0); MEAN CORPUSCULAR HGB CONC 33 g/dl (31.0-36.0); MEAN CORPUSCULAR VOLUME 97 fL (80-96); MONOCYTES # (AUTO) 0.6 /CMM (0.1-1.30); MONOCYTES % (AUTO) 6.5 % (2.0-12.0); NEUTROPHILS # (AUTO) 8.2 /CMM (1.8-8.9); NEUTROPHILS % (AUTO) 81.7 % (43.0-81.0); PLATELET COUNT (AUTO) 188 /CMM (150-450); RDW COEFFICIENT OF VARIATION 14.9 (11.5-15.0); RED BLOOD CELL COUNT(AUTO) 3.01 MIL/uL (4.5-6.0)
[2017-10-19] MEDS: NAPHAZOLINE HCL/PHENIR MAL 15 ML BOTTLE EACHEYE SCH (08:44)
[2017-10-19] MEDS: ENOXAPARIN SODIUM 30 MG/0.3 ML DISP.SYRIN SQ SCH (08:44)
[2017-10-19 08:50] LABS: CALCIUM, SERUM 8.6 mg/dL (8.5-10.1); CARBON DIOXIDE 27 mmol/L (21-32); CHLORIDE 104 mmol/L (98-107); CREATININE 0.8 mg/dL (0.6-1.3); GLUCOSE 119 mg/dL (74-106); POTASSIUM 4.2 mmol/L (3.5-5.1); SODIUM SERUM 139 mmol/L (136-145); UREA NITROGEN, BLOOD 20 mg/dL (7-18)
--- NOTE | 2017-10-19 09:00 | NUR ---
LOVENOX HELD DUE TO PATIENT SCHEDULE FOR A SURGERY AT 1600
[2017-10-19 12:15] LABS: ALANINE AMINOTRANSFERASE 28 U/L (12-78); ALBUMIN 2.3 g/dL (3.4-5.0); ALKALINE PHOSPHATASE 79 U/L (46-116); ASPARTATE AMINOTRANSFERASE 35 U/L (15-37); BILIRUBIN,TOTAL 0.9 mg/dL (0.2-1.0); MAGNESIUM 1.9 mg/dL (1.8-2.4); PHOSPHORUS 3.3 mg/dL (2.5-4.9); TOTAL PROTEIN, SERUM 5.9 g/dL (6.4-8.2)
[2017-10-19] MEDS ORDERED: BACITRACIN 50000 UNITS/VIAL ONE (15:34)
--- NOTE | 2017-10-19 15:58 | NUR ---
PATIENT IS OFF THE FLOOR FOR SURGERY
[2017-10-19] MEDS ORDERED: FENTANYL PF 100MCG/2ML AMPUL ONE (16:06)
[2017-10-19] MEDS ORDERED: MIDAZOLAM HCL 2 MG/2ML VIAL ONE (16:07)
[2017-10-19] MEDS ORDERED: BUPIVACAINE 0.5 % PF 150 MG/30 ML VIAL ONE (17:29)
[2017-10-19] MEDS ORDERED: HYDROMORPHONE 1 MG/1 ML DISP.SYRIN ONE (18:02)
[2017-10-19 18:25] VITALS: BP 150/69
--- NOTE | 2017-10-19 18:25 | NUR ---
PATIENT IS BACK FROM SURGERY. VITAL SIGNS 150/69, OXYGEN 4L NC, HEART RATE 69. WILL CONTINUE TO MONITOR AND ASSESS PATIENT
[2017-10-19 18:40] VITALS: BP 145/76
--- NOTE | 2017-10-19 18:47 | NUR ---
RN CLOSING NOTES PATIENT IS S/P ORIF OF THE LEFT ELBOW. ARRIVED BACK TO UNIT AT 1825. PATIENT IS IN BED. PATIENT IS ALERT AND ORIENTED TO NAME ONLY. PERIOD OF CONFUSIONS. UNABLE TO VERBALIZE UNDERSTANDING. IV SITE IS INTACT AND PATENT. BED IN LOW POSITION, LOCKED AND TWO SIDE RAILS ARE UP. CALL LIGHT WITHIN REACH. ALL NURSING CARE ANTICIPATED AND ATTENDED FOR. PATIENT TURNED AND REPOSITIONED Q2HR PER HOSPITAL PROTOCOL. PATIENT KEPT CLEAN AND DRY. WILL ENDORSE TO ORACLE ADF DEVELOPER NURSE
[2017-10-19 18:55] VITALS: BP 163/74
[2017-10-19 20:00] VITALS: BP 137/65
[2017-10-19] MEDS: QUETIAPINE FUMARATE 25 MG TABLET PO SCH (21:25)
[2017-10-20] MEDS: ANCEF 1 GM/50 ML D5W IV SCH ×6 (01:00→16:01)
--- NOTE | 2017-10-20 07:09 | NUR ---
RN OPEN NOTES RECEIVED REPORT FROM CREATIVE INTERN NURSE. PATIENT IS IN BED. AWAKE, ALERT AND ORIENTED TO NAME ONLY. NO SIGNS AND SYMPTOMS OF DISTRESS. BED IN LOW POSITION, LOCKED AND TWO SIDE RAILS ARE UP. CALL LIGHT WITHIN REACH. WILL CONTINUE TO MONITOR AND ASSESS PATIENT THROUGHOUT MY SHIFT
[2017-10-20 08:00] VITALS: BP 123/60
[2017-10-20] MEDS: SERTRALINE HCL 25 MG TABLET PO SCH (08:37)
[2017-10-20] MEDS: FAMOTIDINE/PF INJ 20 MG/2 ML VIAL IV SCH (08:37)
[2017-10-20] MEDS: DIVALPROEX SODIUM 125 MG CAP.SPRINK PO SCH ×3 (08:37→16:08)
[2017-10-20] MEDS: NAPHAZOLINE HCL/PHENIR MAL 15 ML BOTTLE EACHEYE SCH (09:00)
[2017-10-20] MEDS: HYDROCODONE/APAP 5/325MG 1 EACH TABLET PO PRN ×2 (10:13→14:58)
[2017-10-20] MEDS ORDERED: HYDR-3326 PO (11:25)
[2017-10-20 16:00] VITALS: BP 105/58
--- NOTE | 2017-10-20 16:15 | NUR ---
BOOKING AGENT NOTES PATIENT DISCHARGE ORDER RECEIVED AND CARRIED OUT. PATIENT IS LEAVING IN A STABLE CONDITION. NO SIGNS AND SYMPTOMS OF DISTRESS OR PAIN. [facility]; REPORT GAVE TO POLINA FRYE. PATIENT S GOING TO ROOM NUMBER 56A. DISCHARGE INSTRUCTIONS REPORTED TO HAMEL GUT PULLER. RN VERBALIZED UNDERSTANDING. ALL PERSONAL BELONGING WITH PATIENT AT TIME OF DISCHARGE. TWO (2) RNs SIGNED ON BELONGING FORM AND INSTRUCTION FORM; FORMS PLACED IN THE CHART. PICTURES WERE TAKEN AND PLACED IN THE CHART. IV SITE REMOVED. ID BAND REMOVED. PATIENT PICKED UP BY AMBULANCE AND TWO BUSINESS OFFICE REPRESENTATIVE. VITAL SIGNS ARE STABLE UPON DISCHARGE.
== END 2017-10-20 16:44 | DRG 480 ==
LOC: ER 06:54 → MED 08:50
PROVIDERS: ADMIT Nurse Practitioner Acute Care; ATTEND Nurse Practitioner Acute Care
PROC: 0QS706Z Reposition Left Upper Femur with Intramedullary Internal Fixation Device, Open Approach (ICD-10-PCS; 2017-10-12)
PROC: 30233N1 Transfusion of Nonautologous Red Blood Cells into Peripheral Vein, Percutaneous Approach (ICD-10-PCS; 2017-10-13)
PROC: 0PSL04Z Reposition Left Ulna with Internal Fixation Device, Open Approach (ICD-10-PCS; principal; 2017-10-19 16:55)
DX: S52.022A Displaced fracture of olecranon process without intraarticular extension of left ulna, initial encounter for closed fracture (principal); S72.142A Displaced intertrochanteric fracture of left femur, initial encounter for closed fracture; N17.9 Acute kidney failure, unspecified; D69.6 Thrombocytopenia, unspecified; D72.829 Elevated white blood cell count, unspecified; E53.8 Deficiency of other specified B group vitamins; E55.9 Vitamin D deficiency, unspecified; F03.90 Unspecified dementia, unspecified severity, without behavioral disturbance, psychotic disturbance, mood disturbance, and anxiety; G40.909 Epilepsy, unspecified, not intractable, without status epilepticus; I10 Essential (primary) hypertension; F29 Unspecified psychosis not due to a substance or known physiological condition; F32.9 Major depressive disorder, single episode, unspecified; Y93.9 Activity, unspecified; Y92.89 Other specified places as the place of occurrence of the external cause; M40.40 Postural lordosis, site unspecified; R55 Syncope and collapse; W18.30XA Fall on same level, unspecified, initial encounter; Z66 Do not resuscitate; D64.9 Anemia, unspecified
CPT/HCPCS: 36415; 70450-TC; 71010-TC; 72125-TC; 72170-TC; 73070-TC; 73100-TC; 73200-TC; 73502; 80048-TC; 80053-TC; 80061-TC; 80164-TC; 82306; 82728-TC; 83540-TC; 83735-TC; 84100-TC; 84439-TC; 84443-TC; 84484-TC; 85025-TC; 85610-TC; 85730-TC; 86850-TC; 86921-TC; 87081-TC; 92526; 92611-TC; 93307-TC; 97110-TC; 97112-TC; 97530-TC; A4565; A4606; A6209; A6402; C1713; J0690; J1100; J1170; J1650; J2250; J2270; J2405; J2704; J3010; J3490; J7030; J7050; J7060; P9016-BL; Z7610

== ENCOUNTER 2017-11-08 11:20 | Inpatient (IN) | payer BC ==
[~2017-11-08] VITALS: Ht 177.8 cm; Wt 61.7 kg
[~2017-11-08 11:20] MED LIST: DIVA125C5 PO; HYDR-3326 PO; MELA3TAB PO; NAPH15DR EACHEYE; QUET25TA PO; SERT25TA PO
--- NOTE | 2017-11-08 11:33 | NUR ---
THE PATIENT WAS BROUGHT BY EMS TO ER AFTER AN ASSISTED LIVING STAFF CALLED 911 FOR INCREASING CONFUSION.
[2017-11-08 11:45] LABS: LYMPHOCYTES # (AUTO) 0.5 /CMM (0.8-4.8)
[2017-11-08 11:49] LABS: BASOPHILS # (AUTO) 0.2 /CMM (0.0-0.2); BASOPHILS % (AUTO) 1.2 % (0.0-2.0); HEMATOCRIT 35 % (39-51); HEMOGLOBIN 11.6 g/dL (13.5-17.5); LYMPHOCYTES % (AUTO) 4.1 % (20.0-44.0); MEAN CORPUSCULAR HEMOGLOBIN 31 PG (26.0-33.0); MEAN CORPUSCULAR HGB CONC 33 g/dl (31.0-36.0); MEAN CORPUSCULAR VOLUME 94 fL (80-96); MONOCYTES # (AUTO) 0.4 /CMM (0.1-1.30); MONOCYTES % (AUTO) 3.3 % (2.0-12.0); NEUTROPHILS # (AUTO) 12.1 /CMM (1.8-8.9); NEUTROPHILS % (AUTO) 91.4 % (43.0-81.0); PLATELET COUNT (AUTO) 230 /CMM (150-450); RDW COEFFICIENT OF VARIATION 15.1 (11.5-15.0); RED BLOOD CELL COUNT(AUTO) 3.76 MIL/uL (4.5-6.0); WHITE BLOOD COUNT (AUTO) 13.2 K/uL (4.3-11.0)
--- NOTE | 2017-11-08 11:55 | NUR ---
STANLEY DASILVA NOT AVAILABLE, NEW PERSON EDVA [phone].
[2017-11-08 12:00] LABS: INR 1.15 (0.87-1.13)
[2017-11-08] MEDS ORDERED: IV NS 0.9% 1,000 ML BAG IV ONE (12:00)
[2017-11-08] MEDS ORDERED: ASPIRIN 300 MG/SUPP.RECT RC ONE ×2 (12:00→12:04)
[2017-11-08] MEDS ORDERED: LEVOFLOXACIN 750 MG /D5W 150ML 150 ML IV ONE ×2 (12:00→12:03)
[2017-11-08] MEDS ORDERED: VANCOMYCIN 1 GM in IV D5W 250 ML IV ONE (12:00)
[2017-11-08] MEDS ORDERED: CEFTRIAXONE 1GM BAG (ER ONLY) 50 ML IV ONE (12:00)
[2017-11-08] MEDS ORDERED: ACETAMINOPHEN 650 MG/SUPP.RECT RC ONE (12:01)
[2017-11-08 12:05] LABS: TROPONIN I < 0.017 ng/mL (0.00-0.056)
--- NOTE | 2017-11-08 12:10 | NUR ---
PT MEDICATED ORDERED. NOTED ON A SOILED DIAPER, CLEANED AND CHANGED PER PROTOCOL.
[2017-11-08 12:13] LABS: POTASSIUM 3.4 mmol/L (3.5-5.1)
[2017-11-08 12:14] LABS: CALCIUM, SERUM 9.4 mg/dL (8.5-10.1); CARBON DIOXIDE 27 mmol/L (21-32); CHLORIDE 126 mmol/L (98-107); CREATININE 1.8 mg/dL (0.6-1.3); GLUCOSE 209 mg/dL (74-106)
[2017-11-08 12:15] LABS: SODIUM SERUM 165 mmol/L (136-145); UREA NITROGEN, BLOOD 95 mg/dL (7-18)
[2017-11-08 12:16] LABS: ALANINE AMINOTRANSFERASE 12 U/L (12-78); ALBUMIN 1.7 g/dL (3.4-5.0); ASPARTATE AMINOTRANSFERASE 23 U/L (15-37)
[2017-11-08 12:17] LABS: ALKALINE PHOSPHATASE 152 U/L (46-116); BILIRUBIN,DIRECT 0.3 mg/dL (0.0-0.2); BILIRUBIN,TOTAL 0.6 mg/dL (0.2-1.0)
[2017-11-08 12:18] LABS: TOTAL PROTEIN, SERUM 7.6 g/dL (6.4-8.2)
[2017-11-08] MEDS ORDERED: AMIN30LI4 PO (12:23)
[2017-11-08] MEDS ORDERED: ACET-868 PO (12:23)
[2017-11-08] MEDS ORDERED: ZINC220C8 PO (12:23)
[2017-11-08] MEDS ORDERED: ACET-2605 PO (12:23)
[2017-11-08] MEDS ORDERED: ASCO500T9 PO (12:23)
[2017-11-08] MEDS ORDERED: IPRA3AMP IH (12:23)
[2017-11-08] MEDS ORDERED: MULT-447 PO (12:23)
[2017-11-08] MEDS ORDERED: HYDR-552 PO (12:23)
[2017-11-08] MEDS ORDERED: DOCU-141 PO (12:23)
[2017-11-08] MEDS ORDERED: BISA10SU8 RC (12:23)
[2017-11-08] MEDS ORDERED: MAGN400O6 PO (12:23)
[2017-11-08] MEDS ORDERED: OSEL75CA PO (12:24)
--- NOTE | 2017-11-08 13:18 | NUR ---
CALLED NURSING SUP. FOR JULISSA BED
--- NOTE | 2017-11-08 13:18 | NUR ---
EPIC PAGED, IMPREGNATING HELPER
[2017-11-08 13:42] LABS: APPEARANCE,URINE Clear (CLEAR); BILIRUBIN,URINE MODERATE (NEGATIVE); BLOOD, URINE Negative Ery/uL (NEGATIVE); COLOR,URINE Yellow (YELLOW); KETONES,URINE Trace (NEGATIVE); LEUKOCYTE ESTERASE ,URINE Negative (NEGATIVE); NITRITE, URINE Negative (NEGATIVE); PROTEIN,URINE 30 mg/dl (NEGATIVE); UGLUCOSE 100 MG/DL mg/dL (NEGATIVE); UROBILINOGEN,URINE >=8.0 EU/dL (0.2)
[2017-11-08 13:44] LABS: BACTERIA,URINE Few /HPF (None Seen); RBC,URINE 0-2 /HPF (0-2); SQUAMOUS EPITHELIAL CELL,UR Rare /HPF (None Seen); WBC,URINE 0-2 /HPF (0-3)
[2017-11-08] MEDS ORDERED: IV NS 0.9% 1,000 ML IV PRN (15:58)
[2017-11-08] MEDS ORDERED: MAG HYDROX/AL HYDROX/SIMETH 30 ML UDC PO PRN (16:00)
[2017-11-08] MEDS ORDERED: ACETAMINOPHEN 325 MG TABLET PO PRN ×2 (16:00→17:00)
[2017-11-08] MEDS ORDERED: Z GUARD REMEDY 2 OZ OINT TP PRN (16:00)
[2017-11-08] MEDS ORDERED: ONDANSETRON HCL/PF 4 MG/2 ML VIAL IVP PRN (16:00)
[2017-11-08] MEDS ORDERED: MAGNESIUM HYDROXIDE 30 ML UDC PO PRN (16:00)
--- NOTE | 2017-11-08 16:01 | NUR ---
REPORT GIVEN TO SOON CHARGE NURSE FOR JULISSA ROOM 102.
[2017-11-08] MEDS ORDERED: ALBUTEROL FS 2.5 MG/3 ML VIAL.NEB NEB PRN (16:30)
[2017-11-08] MEDS ORDERED: VANCOMYCIN 1 GM in IV D5W 250 ML IV SCH (16:30)
[2017-11-08] MEDS ORDERED: IV D5W 1,000 ML IV PRN (16:30)
[2017-11-08] MEDS ORDERED: FEE PK DOSING 1 MIN EA MC ONE (16:35)
[2017-11-08] MEDS ORDERED: OSELTAMIVIR PHOSPHATE 75 MG CAPSULE PO SCH (17:00)
[2017-11-08] MEDS ORDERED: IV 1/2NS 1000 ML 1,000 ML IV ONE (17:00)
[2017-11-08] MEDS ORDERED: BISACODYL SUPP (10 MG) 10 MG/SUPP.RECT SUPP.RECT RC PRN (17:00)
[2017-11-08] MEDS: PIPERACILLIN /TAZOBACTAM 2.25 G in IV D5W 50 ML IV SCH (17:14)
[2017-11-08] MEDS: DIVALPROEX SODIUM 125 MG CAP.SPRINK PO SCH (17:15)
[2017-11-08 17:17] VITALS: BP 108/41
[2017-11-08] MEDS ORDERED: PIPERACILLIN /TAZOBACTAM 3.375 G in IV D5W 50 ML IV SCH (18:00)
--- NOTE | 2017-11-08 19:09 | NUR ---
Call from STANLEY BOTELLO. Says pt had flu and was on day three of five which started on 11/04/17 with tamiflu. Mr. Mcginnis says he is also a doctor, not an MD. Says pt responds best when you address him by Dennys. Has less anxiety when you use his name. 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 Will return call to night nurse in 6 hours. Given display card writer, night nurse, Attending MD and Cardiologists names as requested.
--- NOTE | 2017-11-08 19:34 | NUR ---
Handoff to night nurse.
[2017-11-08 20:00] VITALS: BP 98/44
--- NOTE | 2017-11-08 20:06 | NUR ---
RN TEL-TD INITIAL NOTES RECEIVED PT ON MASK, AWAKE , AN ABLE TO TALK AT THIS TIME, NO SIGN OF FACIAL GRIMANCING NOTED, WITH R-16 G, 1/2 NS@250ML/HR. # 1 BAG AND 2ND BAG TO RUN @250 AND THEN DECREASE TO 125ML/HR. IV SITE INTACT NO SIGN OF INFILTRATION. FLUIDS WELL TOLERATED AT THIS TIME. ALL NEEDS MET THIS TIME WELL SAFETY MEASURE IN PLACE.B WILL CONT TO MONITOR.
[2017-11-08] MEDS ORDERED: QUETIAPINE FUMARATE 25 MG TABLET PO SCH (22:00)
--- NOTE | 2017-11-08 22:07 | NUR ---
2200 SEROQUEL 25 MG NOT GIVEN, PT WITH ALOC, AN ABLE TO SWALLOW, CONFUSED, ACTUAL POTENTIAL FOR ASPIRATION. NPO
[2017-11-09] MEDS: PIPERACILLIN /TAZOBACTAM 2.25 G in IV D5W 50 ML IV SCH ×4 (00:25→20:06)
--- NOTE | 2017-11-09 07:49 | NUR ---
JULISSA RN NOTE PATIENT IS RECEIVED IN BED , UNABLE TO MAKE NEEDS KNOWN , PATIENT NON REBREATHER IS CURRENTLY OFF DUE TO PATIENT INCREASED AGITATION AND PATIENT CONTINUES TO REMOVE FACE MASK, RN AND SAFETY COORDINATOR ATTEMPT TO REORIENT THE PATIENT AND TEACH THE IMPORTANCE OF KEEPING THE FACE MASK ON , NO SOB NOTED RN WILL CONTINUE TO FOLLOW
[2017-11-09 07:58] LABS: BASOPHILS % (AUTO) 0.1 % (0.0-2.0); HEMATOCRIT 29 % (39-51); HEMOGLOBIN 9.5 g/dL (13.5-17.5); LYMPHOCYTES # (AUTO) 0.5 /CMM (0.8-4.8); LYMPHOCYTES % (AUTO) 3.4 % (20.0-44.0); MEAN CORPUSCULAR HEMOGLOBIN 31 PG (26.0-33.0); MEAN CORPUSCULAR HGB CONC 33 g/dl (31.0-36.0); MEAN CORPUSCULAR VOLUME 95 fL (80-96); MONOCYTES # (AUTO) 0.2 /CMM (0.1-1.30); MONOCYTES % (AUTO) 1.2 % (2.0-12.0); NEUTROPHILS # (AUTO) 12.9 /CMM (1.8-8.9); NEUTROPHILS % (AUTO) 95.3 % (43.0-81.0); PLATELET COUNT (AUTO) 150 /CMM (150-450); RDW COEFFICIENT OF VARIATION 15.2 (11.5-15.0); RED BLOOD CELL COUNT(AUTO) 3.01 MIL/uL (4.5-6.0); WHITE BLOOD COUNT (AUTO) 13.6 K/uL (4.3-11.0)
[2017-11-09 08:42] LABS: CALCIUM, SERUM 8.6 mg/dL (8.5-10.1); CARBON DIOXIDE 26 mmol/L (21-32); CREATININE 1.2 mg/dL (0.6-1.3); GLUCOSE 150 mg/dL (74-106); MAGNESIUM 2.9 mg/dL (1.8-2.4); PHOSPHORUS 2.9 mg/dL (2.5-4.9); POTASSIUM 3.4 mmol/L (3.5-5.1); UREA NITROGEN, BLOOD 68 mg/dL (7-18)
[2017-11-09 08:46] LABS: CHLORIDE 128 mmol/L (98-107); SODIUM SERUM 163 mmol/L (136-145)
[2017-11-09] MEDS: ZINC SULFATE 220 MG CAPSULE PO SCH (09:00)
[2017-11-09] MEDS ORDERED: SERTRALINE HCL 25 MG TABLET PO SCH (09:00)
[2017-11-09] MEDS ORDERED: ASCORBIC ACID 500 MG TABLET PO SCH (09:00)
[2017-11-09] MEDS: DIVALPROEX SODIUM 125 MG CAP.SPRINK PO SCH ×3 (09:00→20:06)
[2017-11-09] MEDS: PANTOPRAZOLE 40 MG VIAL IV SCH (09:29)
--- NOTE | 2017-11-09 09:31 | NUR ---
RN NOTE PO AM MEDICATION NOT GIVEN DUE TO PATIENT NOT BEING ABLE TO SWALLOW TAMMY ANTOINE NOTIFIED ABOUT NEED TO CHANGE MEDICATION TO IV , SPEECH EVALUATION ORDERED
[2017-11-09] MEDS ORDERED: VANCOMYCIN 0.75 GM in IV D5W 250 ML IV SCH (12:00)
--- NOTE | 2017-11-09 14:19 | NUR ---
RN NOTE DELAY IN VANCOMYCIN DELAY DUE TO PATIENT INCRESED ANXIETY AND AGITATION, IV FLUID HELD PATIENT REORIENTED RN CURRENTLY JOVANI 1ST ANTIBOTIC 2ND ANTIBIOTIC WILL BE RAN
--- NOTE | 2017-11-09 20:07 | NUR ---
RN CLOSING NOTE PATIENT IN BED STILL DISORIENTED PATIENT TURNED AND REPOSITIONED MEDICATION ADMINISTERED, BILATERAL WRIST RESTRAINT CURRENTLY ON PATIENT VITALS STABLE AT THIS TIME. RN ENDORSED CONTINUED CARE TO PM RN. NON REBREATHER STILL ON WITH OUT SOB NOTED
[2017-11-09 20:56] VITALS: BP 111/50
--- NOTE | 2017-11-09 21:55 | NUR ---
MS-1/ELDA PT TRANSFERRED TO ROOM 201. REPORT TO JOHN FISH FOR CONT OF CARE.
[2017-11-09] MEDS: VANCOMYCIN 500 MG in IV D5W 100 ML IV SCH (23:15)
--- NOTE | 2017-11-09 23:35 | NUR ---
RN NOTES RECEIVED PATIENT FROM [employer]; REPORT RECEIVED FROM JOHN FISH. PATIENT AWAKE, RESPONSIVE TO TOUCH. WRIST RESTRAINT IN PLACE. NO ACUTE DISTRESS NOTED. NO SIGNS OF PAIN NOTED. IV SITE PATENT, INTACT; IVF INFUSING ORDERED. ON LOW BED WITH BILATERAL UPPER SIDE RAILS UP. WILL CONTINUE TO MONITOR.
[2017-11-10] MEDS: PIPERACILLIN /TAZOBACTAM 2.25 G in IV D5W 50 ML IV SCH ×5 (00:09→23:48)
[2017-11-10 06:22] LABS: BASOPHILS % (AUTO) 0.1 % (0.0-2.0); HEMATOCRIT 29 % (39-51); HEMOGLOBIN 9.5 g/dL (13.5-17.5); LYMPHOCYTES # (AUTO) 0.4 /CMM (0.8-4.8); LYMPHOCYTES % (AUTO) 2.5 % (20.0-44.0); MEAN CORPUSCULAR HEMOGLOBIN 31 PG (26.0-33.0); MEAN CORPUSCULAR HGB CONC 33 g/dl (31.0-36.0); MEAN CORPUSCULAR VOLUME 95 fL (80-96); MONOCYTES # (AUTO) 0.1 /CMM (0.1-1.30); MONOCYTES % (AUTO) 0.9 % (2.0-12.0); NEUTROPHILS # (AUTO) 15.9 /CMM (1.8-8.9); NEUTROPHILS % (AUTO) 96.5 % (43.0-81.0); PLATELET COUNT (AUTO) 160 /CMM (150-450); RDW COEFFICIENT OF VARIATION 15.7 (11.5-15.0); RED BLOOD CELL COUNT(AUTO) 3.07 MIL/uL (4.5-6.0); WHITE BLOOD COUNT (AUTO) 16.4 K/uL (4.3-11.0)
--- NOTE | 2017-11-10 06:35 | NUR ---
RN NOTES PATIENT ASLEEP, EASILY AROUSABLE. RESPIRATIONS EVEN. NO SIGNS OF PAIN NOTED. DUE MEDS GIVEN WITH NO ASE NOTED. NEEDS ATTENDED. KEPT CLEAN AND DRY. SAFETY PRECAUTIONS AND COMFORT MEASURES IN PLACE. WILL GIVE REPORT TO DAY SHIFT FOR CONTINUITY OF CARE.
[2017-11-10 06:53] LABS: ALANINE AMINOTRANSFERASE 13 U/L (12-78); ALKALINE PHOSPHATASE 130 U/L (46-116); ASPARTATE AMINOTRANSFERASE 18 U/L (15-37); BILIRUBIN,TOTAL 0.5 mg/dL (0.2-1.0); CALCIUM, SERUM 8.7 mg/dL (8.5-10.1); CARBON DIOXIDE 27 mmol/L (21-32); CREATININE 1.1 mg/dL (0.6-1.3); GLUCOSE 161 mg/dL (74-106); MAGNESIUM 2.8 mg/dL (1.8-2.4); PHOSPHORUS 2.4 mg/dL (2.5-4.9); POTASSIUM 3.5 mmol/L (3.5-5.1); TOTAL PROTEIN, SERUM 5.8 g/dL (6.4-8.2); UREA NITROGEN, BLOOD 49 mg/dL (7-18)
[2017-11-10 07:00] LABS: ALBUMIN 1.2 g/dL (3.4-5.0); CHLORIDE 130 mmol/L (98-107); SODIUM SERUM 166 mmol/L (136-145)
--- NOTE | 2017-11-10 07:00 | NUR ---
RN NOTES NEW LAB RESULTS RECEIVED FROM LAB. WILL ENDORSE TO NEXT SHIFT.
--- NOTE | 2017-11-10 08:00 | NUR ---
RN NOTES RECEIVED PATIENT IN THE BED , ON NON REBREATHER MASK ON 100 %, A/O X1 OPEN EYES WHEN CALLED NAME OR TOUCHED, PATIENT NPO, IV LINE ON RIGHT HAND INFUSING KCL 130 ML/HR, ALSO HAS A SOFT RESTRAIN BOTH ARMS, ASSIST TURN AND REPOSITION Q 2 HR, PATIENT INCONTINENT, CALL LIGHT WITHIN TO REACH, SAFETY PRECAUTION MAINTAINED ALL THE TIME.
[2017-11-10] MEDS: ZINC SULFATE 220 MG CAPSULE PO SCH (09:00)
[2017-11-10] MEDS: DIVALPROEX SODIUM 125 MG CAP.SPRINK PO SCH ×4 (09:00→16:40)
[2017-11-10] MEDS ORDERED: IV D5W 1,000 ML IV SCH (09:00)
[2017-11-10] MEDS: PANTOPRAZOLE 40 MG VIAL IV SCH (09:51)
--- NOTE | 2017-11-10 10:00 | NUR ---
RN NOTES PATIENTS LABS RESULT NOTIFIED DR MUNOZ, NON NEW ORDERS, PATIENT STILL ON NON REBREATHER MASK 100%,HOLD ALL PO MEDICATION, NO ACUTE RESPIRATORY DISTRESS, V/S STABLE, INCONTINENT, ASSIST TURN AND REPOSITION Q 2 HR. SAFETY PRECAUTION MAINTAINED ALL THE TIME.
[2017-11-10] MEDS: VANCOMYCIN 500 MG in IV D5W 100 ML IV SCH (12:21)
[2017-11-10] MEDS ORDERED: K PHOS NEUTRAL 250 MG TABLET PO ONE (13:30)
[2017-11-10] MEDS ORDERED: POTASSIUM PHOSPHATE MM 7.5 MMOL in IV D5W 100 ML IV SCH (16:00)
--- NOTE | 2017-11-10 16:00 | NUR ---
RN NOTES PATIENT STILL SAME, NO ACUTE DISTRESS, NO ACUTE RESPIRATORY DISTRESS, CONTINUED MONITORING.
--- NOTE | 2017-11-10 18:30 | NUR ---
RN NOTES PATIENT IN THE BED, NO ACUTE RESPIRATORY DISTRESS, ON NON REBREATHER MASK 100 %, INFUSING D5W 75 ML/HR, INTACT, V/S STABLE, NEEDS ATTENDED AND ANTICIPATED, CALL LIGHT WITHIN TO REACH, CONTINUED MONITORING, ENDORSED ONCOMING NURSE FOR CONTINUATION OF CARE.
[2017-11-10 20:00] VITALS: BP 106/44
[2017-11-11] MEDS: VANCOMYCIN 500 MG in IV D5W 100 ML IV SCH (00:31)
[2017-11-11] MEDS: IV D5W 1,000 ML IV PRN ×2 (03:25→23:16)
[2017-11-11 04:00] VITALS: BP 109/44
--- NOTE | 2017-11-11 05:38 | NUR ---
MS1/RN ORAL SUCTION DONE, THICK, YELLOWISH SECRETION SUCTIONED OUT. TOLERATED.
[2017-11-11] MEDS: PIPERACILLIN /TAZOBACTAM 2.25 G in IV D5W 50 ML IV SCH (05:51)
--- NOTE | 2017-11-11 06:06 | NUR ---
MS1/RN PATIENT APPEAR SLEEPING AT THIS TIME, CALM AND COMFORTABLE, NO DISTRESS NOTED, NRM 15L O2, ALL NEEDS ATTENDED AT THIS TIME. WILL CONTINUE TO MONITOR.
[2017-11-11 06:15] LABS: CALCIUM, SERUM 8.8 mg/dL (8.5-10.1); CARBON DIOXIDE 29 mmol/L (21-32); CHLORIDE 125 mmol/L (98-107); GLUCOSE 193 mg/dL (74-106); MAGNESIUM 2.5 mg/dL (1.8-2.4); PHOSPHORUS 1.9 mg/dL (2.5-4.9); POTASSIUM 3.3 mmol/L (3.5-5.1); UREA NITROGEN, BLOOD 37 mg/dL (7-18)
[2017-11-11 06:20] LABS: SODIUM SERUM 159 mmol/L (136-145)
[2017-11-11 06:21] LABS: BASOPHILS # (AUTO) 0.1 /CMM (0.0-0.2); BASOPHILS % (AUTO) 0.3 % (0.0-2.0); EOSINOPHILS % (AUTO) 0.1 % (0.0-6.0); HEMATOCRIT 30 % (39-51); LYMPHOCYTES # (AUTO) 0.5 /CMM (0.8-4.8); MEAN CORPUSCULAR HEMOGLOBIN 31 PG (26.0-33.0); MEAN CORPUSCULAR HGB CONC 33 g/dl (31.0-36.0); MEAN CORPUSCULAR VOLUME 94 fL (80-96); MONOCYTES # (AUTO) 0.2 /CMM (0.1-1.30); MONOCYTES % (AUTO) 1.1 % (2.0-12.0); NEUTROPHILS # (AUTO) 17.5 /CMM (1.8-8.9); NEUTROPHILS % (AUTO) 95.5 % (43.0-81.0); PLATELET COUNT (AUTO) 176 /CMM (150-450); RDW COEFFICIENT OF VARIATION 15.1 (11.5-15.0); RED BLOOD CELL COUNT(AUTO) 3.21 MIL/uL (4.5-6.0); WHITE BLOOD COUNT (AUTO) 18.3 K/uL (4.3-11.0)
--- NOTE | 2017-11-11 06:23 | NUR ---
MS1/RN RECEIVED A CALL FROM LAB, RE: SODIUM 159. YESTERDAY'S SODIUM WAS 166. WILL ENDORSE TO NEXT RN.
--- NOTE | 2017-11-11 07:56 | NUR ---
MS RN NOTES RECEIVED PT ON BED SLEEPING.A/O X 2 WITH EPISODES OF CONFUSION. ON NPO STATUS. ON NC 15L TOLERATING WELL. IV ACCESS ON RIGHT WRIST #22 NO SIGN OF PAIN OR REDNESS. D5W @75MLS/HR RUNNING WELL NO SIGN OF INFECTION OR REDNESS AT THE IV SITE. HEAD OF BED ELEVATED. CALL LIGHT WITHIN REACH. SIDE RAILS UP. WILL CONTINUE TO MONITOR PT CLOSELY.
[2017-11-11 08:00] VITALS: BP 106/47
[2017-11-11] MEDS: ZINC SULFATE 220 MG CAPSULE PO SCH (08:37)
[2017-11-11] MEDS: DIVALPROEX SODIUM 125 MG CAP.SPRINK PO SCH ×3 (08:37→16:19)
[2017-11-11] MEDS: PANTOPRAZOLE 40 MG VIAL IV SCH (08:38)
[2017-11-11] MEDS: Potassium Phosphate meq 11 MEQ in IV D5W 100 ML IV SCH ×2 (10:10→13:24)
--- NOTE | 2017-11-11 11:44 | NUR ---
MS RN NOTES PT WANTS TO REMOVE IV LINES. SKIN INTEGRITY CHECKED
[2017-11-11] MEDS ORDERED: VANCOMYCIN 0.75 GM in IV D5W 250 ML IV SCH (12:00)
[2017-11-11] MEDS: PIPERACILLIN /TAZOBACTAM 3.375 G in IV D5W 50 ML IV SCH ×2 (14:36→17:40)
--- NOTE | 2017-11-11 15:59 | NUR ---
MS RN NOTES NOTIFIED DR MUNOZ THAT PT IS NPO AND NOT TAKING DEPAKOTE PO.
[2017-11-11 16:00] VITALS: BP 107/43
[2017-11-11] MEDS: NAFCILLIN 2 G in IV D5W 50 ML IV SCH ×2 (16:27→23:15)
--- NOTE | 2017-11-11 18:55 | NUR ---
MS RN NOTES PT STABLE. DUE MEDS GIVEN. WILL ENDORSE TO THE PM NURSE
--- NOTE | 2017-11-11 19:30 | NUR ---
MS RN OPENING NOTES: PATIENT IN BED, AWAKE, OPENS EYES, BUT NON VERBAL, ON O2 VIA NON REBREATHER MASK AT 15 LPM, BREATHING WITH EVEN EXPANSION AT RATE OF 28/MIN, WITH RHONCHI HEARD ON AUSCULTATION. PIV OVER R HAND G 22 INTACT AND PATENT, INFUSING WELL WITH D5 W RUNNING AT 75 ML/HR. PROVIDED FOR COMFORT AND SAFETY. BED IN LOWEST AND LOCKED POSITION, WITH SOFT WRIST RESTRAINTS BILATERAL, CHECKED FOR SIGNS OF SKIN BREAKDOWN. SIDERAILS UP X 3, MAINTAINED HOB ELEVATED. ON NPO. WILL CONT TO MONITOR.
[2017-11-11 20:00] VITALS: BP 119/62
[2017-11-11] MEDS: VALPROIC ACID 250 MG/5 ML UDC GT SCH (21:00)
--- NOTE | 2017-11-11 23:24 | NUR ---
RN NOTES: PIV OVER R HAND STARTING TO APPEAR SWOLLEN. D'NAN LINE, REINSERTED NEW IV LINE OVER LEFT FOREARM G 22.
[2017-11-12] MEDS: PIPERACILLIN /TAZOBACTAM 3.375 G in IV D5W 50 ML IV SCH ×4 (00:44→20:29)
[2017-11-12] MEDS: NAFCILLIN 2 G in IV D5W 50 ML IV SCH ×3 (05:03→17:44)
--- NOTE | 2017-11-12 06:43 | NUR ---
MS RN CLOSING NOTES: PATIENT IN BED, AOX1, ON O2 VIA NON REBREATHER MASK AT 15 LPM, O2 SAT AT 95%. BREATHING WITH EVEN EXPANSION AT RATE OF 28, WITH RHONCHI OVER UPPER LUNG OLIVEIRA. MAINTAINED HOB ELEVATED. PIV OVER LFA G 22 INTACT AND INFUSING WELL WITH D5W RUNNING AT 75 ML/HR. DUE MEDS GIVEN. PROVIDED FOR COMFORT AND SAFETY. BED IN LOWEST NAD LOCKED POSITION, SIDERAILS UP X3. BALJEET SOFT WRIST RESTRAINTS APPLIED AT THIS TIME FOR SAFETY, NOTED NO SIGNS OF SKIN BREAKDOWN OVER FOREARMS. MORNING CARE RENDERED. WILL ENDORSE TO AM RN FOR SOLOMON
[2017-11-12 06:49] LABS: CALCIUM, SERUM 8.4 mg/dL (8.5-10.1); CARBON DIOXIDE 28 mmol/L (21-32); CHLORIDE 121 mmol/L (98-107); EOSINOPHILS % (AUTO) 0.1 % (0.0-6.0); GLUCOSE 187 mg/dL (74-106); MAGNESIUM 2.3 mg/dL (1.8-2.4); PHOSPHORUS 3.1 mg/dL (2.5-4.9); UREA NITROGEN, BLOOD 34 mg/dL (7-18)
[2017-11-12 06:59] LABS: BASOPHILS # (AUTO) 0.1 /CMM (0.0-0.2); BASOPHILS % (AUTO) 0.3 % (0.0-2.0); HEMATOCRIT 26 % (39-51); HEMOGLOBIN 8.7 g/dL (13.5-17.5); LYMPHOCYTES # (AUTO) 0.6 /CMM (0.8-4.8); LYMPHOCYTES % (AUTO) 3.3 % (20.0-44.0); MEAN CORPUSCULAR HEMOGLOBIN 31 PG (26.0-33.0); MEAN CORPUSCULAR HGB CONC 33 g/dl (31.0-36.0); MEAN CORPUSCULAR VOLUME 93 fL (80-96); MONOCYTES # (AUTO) 0.2 /CMM (0.1-1.30); MONOCYTES % (AUTO) 1.3 % (2.0-12.0); NEUTROPHILS # (AUTO) 16.8 /CMM (1.8-8.9); RDW COEFFICIENT OF VARIATION 14.8 (11.5-15.0); WHITE BLOOD COUNT (AUTO) 17.7 K/uL (4.3-11.0)
[2017-11-12 07:42] LABS: SODIUM SERUM 156 mmol/L (136-145)
--- NOTE | 2017-11-12 07:55 | NUR ---
MS/RN OPENING NOTE PATIENT IN BED IN STABLE CONDITION. A/O X 1. NON VERBAL. NO SIGNS OF ACUTE DISTRESS. NO COMPLAIN OF PAIN OR DISCOMFORT. ON NON REBREATHER MASK AT 15L OXYGEN TOLERATING WELL. ALL NEEDS ATTENDED TO. CALL LIGHT WITHIN REACH. WILL CONTINUE TO MONITOR TO ENSURE SAFETY.
[2017-11-12 08:00] VITALS: BP 113/46
[2017-11-12] MEDS: VALPROIC ACID 250 MG/5 ML UDC GT SCH ×2 (08:17→21:00)
[2017-11-12] MEDS: DIVALPROEX SODIUM 125 MG CAP.SPRINK PO SCH ×2 (08:18→12:16)
[2017-11-12] MEDS: ZINC SULFATE 220 MG CAPSULE PO SCH (08:18)
[2017-11-12] MEDS: PANTOPRAZOLE 40 MG VIAL IV SCH (08:34)
[2017-11-12 10:17] LABS: PLATELET COUNT (AUTO) 137 /CMM (150-450)
[2017-11-12 10:22] LABS: BAND % (MANUAL) 1 % (0.0-5.0); EOSINOPHILS % (MANUAL) 1 % (0-4); LYMPHOCYTES % (MANUAL) 7 % (16-48); MONOCYTES % (MANUAL) 2 % (0-11.0); NEUTROPHILS % (MANUAL) 89 (42-76)
[2017-11-12] MEDS ORDERED: POTASSIUM CHLORIDE 20 MEQ TAB.PRT.SR PO SCH (12:00)
[2017-11-12] MEDS: POTASSIUM CL. PREMIX PERIPHER. 50 ML IV SCH ×6 (13:30→23:14)
[2017-11-12] MEDS: MORPHINE SULFATE INJ 4 MG/ML DISP.SYRIN IV PRN (14:17)
[2017-11-12 16:00] VITALS: BP 90/33
--- NOTE | 2017-11-12 18:40 | NUR ---
MS/RN CLOSING NOTE PATIENT IN BED ON NON REBREATHER MASK AT OXYGEN 15LPM, TOLERATING WELL, SATURATION 98%. NO SIGNS OF ACUTE DISTRESS. NO COMPLAIN OF PAIN OR DISCOMFORT. ON POTASSIUM 300ML, 50 ML BAGS. 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 ALL NEEDS ATTENDED TO. CALL LIGHT WITHIN REACH. WILL ENDORSE TO NEXT SHIFT FOR CONTINUITY OF CARE.
--- NOTE | 2017-11-12 19:30 | NUR ---
MS/RN OPENING NOTES PT RECEIVED, NON VERBAL. ON 15L O2 VIA NON REBREATHER MASK. SPO2 96%, WITH TACHYPNEA (38 BREATHS/MIN). IV TO LFA RUNNING IVF ORDERED. 2 BAGS OF POTASSIUM LEFT TO INFUSE. BILATERAL SOFT WRIST RESTRAINTS IN PLACE DUE TO PT REMOVING OXYGEN MASK AND PULLING IV LINES. GOOD CIRCULATION TO BOTH EXTREMITIES NOTED. BED IN LOW/LOCKED POSITION WITH CALL LIGHT IN REACH. SIDE RAILS UPX2. WILL CONTINUE TO MONITOR
[2017-11-12 20:00] VITALS: BP 116/47
--- NOTE | 2017-11-12 20:33 | NUR ---
MS/RN NOTES NOTIFIED ROSE MARY PARKER NP REGARDING PT NPO STATUS AND HAS SCHEDULED VALPROIC ACID. LOOKING TO CHANGE ORDER TO IV. SHE WILL PLACE ORDER
[2017-11-12] MEDS ORDERED: VALPROATE 250 MG in IV D5W 100 ML IV SCH (23:30)
--- NOTE | 2017-11-12 23:47 | NUR ---
MS/RN NOTES SPOKE TO PT'S DPOA DR. BRIAN DASILVA UPDATES PROVIDED REGARDING PT'S CARE AND QUESTIONS ANSWERED TO BEST OF MY ABILITIES. DR. DASILVA IS CONCERNED WITH PT'S NUTRITIONAL STATUS AND WOULD LIKE DAY SHIFT RN TO FOLLOW UP WITH THE MD TOMORROW TO SEE WHAT ARE OPTIONS ARE. WILL ENDORSE TO DAY SHIFT RN.
[2017-11-13] MEDS ORDERED: VALPROATE 500 MG/5 ML VIAL IV ONE (00:04)
[2017-11-13] MEDS: NAFCILLIN 2 G in IV D5W 50 ML IV SCH ×4 (01:24→18:02)
[2017-11-13] MEDS: PIPERACILLIN /TAZOBACTAM 3.375 G in IV D5W 50 ML IV SCH ×4 (02:31→19:05)
[2017-11-13 04:00] VITALS: BP 106/50
--- NOTE | 2017-11-13 04:05 | NUR ---
MS/RN NOTES PT DESATTING WITH SPO2 85-87% ON 15L O2 VIA NONREBREATHER MASK. HOB ELEVATED HIGH FOWLERS FOR INCREASED LUNG EXPANSION. NASOPHARYNGEAL SUCTION PROVIDED. SPO2 INCREASED TO 91%. MECHANICAL EXPERT MADE AWARE. WILL CONTINUE TO MONITOR
[2017-11-13] MEDS: IV D5W 1,000 ML IV PRN ×2 (04:38→21:24)
--- NOTE | 2017-11-13 06:44 | NUR ---
MS/RN CLOSING NOTES PT IN BED WITH EYES CLOSED. RESPONSIVE TO PAIN. HOB ELEVATED HIGH FOWLERS FOR INCREASED LUNG EXPANSION. REMAINS ON 15L O2 VIA NON-REBREATHER MASK. SPO2 SHOWS 94%. BREATHING REMAINS EVEN HOWEVER IS TACHYPNEIC WITH RESPIRATIONS AT 34 BREATHS/MIN. REMAINS ON SOFT BILATERAL WRIST RESTRAINTS. FREQUENT CIRCULATION CHECKS AND RELEASE OF RESTRAINTS PROVIDED. IV TO LFA PATENT AND INTACT RUNNING IVF ORDERED. MADE PT COMFORTABLE POSSIBLE DURING SHIFT. TURNED/REPOSITIONED Q2H AND HEELS OFFLOADED AT ALL TIMES. BED IN LOW/LOCKED POSITION WITH CALL LIGHT IN REACH AND SIDE RAILS UPX2. DAY SHIFT RN TO FOLLOW UP WITH DPOA REGARDING DNI CODE STATUS AND CLARIFY WITH MD REGARDING NUTRITIONAL OPTIONS.
[2017-11-13 07:27] LABS: CALCIUM, SERUM 8.8 mg/dL (8.5-10.1); CARBON DIOXIDE 28 mmol/L (21-32); CHLORIDE 121 mmol/L (98-107); CREATININE 1.7 mg/dL (0.6-1.3); GLUCOSE 195 mg/dL (74-106); MAGNESIUM 2.7 mg/dL (1.8-2.4); PHOSPHORUS 6.5 mg/dL (2.5-4.9); POTASSIUM 4.5 mmol/L (3.5-5.1); UREA NITROGEN, BLOOD 42 mg/dL (7-18)
[2017-11-13 07:36] LABS: SODIUM SERUM 160 mmol/L (136-145)
[2017-11-13 07:38] LABS: BASOPHILS # (AUTO) 0.1 /CMM (0.0-0.2); BASOPHILS % (AUTO) 0.2 % (0.0-2.0); HEMATOCRIT 32 % (39-51); HEMOGLOBIN 10.3 g/dL (13.5-17.5); LYMPHOCYTES # (AUTO) 0.6 /CMM (0.8-4.8); LYMPHOCYTES % (AUTO) 2.1 % (20.0-44.0); MEAN CORPUSCULAR HEMOGLOBIN 31 PG (26.0-33.0); MEAN CORPUSCULAR HGB CONC 32 g/dl (31.0-36.0); MEAN CORPUSCULAR VOLUME 96 fL (80-96); MONOCYTES # (AUTO) 0.9 /CMM (0.1-1.30); MONOCYTES % (AUTO) 3.3 % (2.0-12.0); NEUTROPHILS # (AUTO) 26.5 /CMM (1.8-8.9); NEUTROPHILS % (AUTO) 94.4 % (43.0-81.0); PLATELET COUNT (AUTO) 233 /CMM (150-450); RDW COEFFICIENT OF VARIATION 16.1 (11.5-15.0); RED BLOOD CELL COUNT(AUTO) 3.32 MIL/uL (4.5-6.0); WHITE BLOOD COUNT (AUTO) 28.1 K/uL (4.3-11.0)
[2017-11-13 08:00] VITALS: BP 81/32
[2017-11-13 08:53] LABS: ABG OXYGEN SATURATION 92.2 % (92.0-98.5); ABG PCO2 51.5 mmHg (35.0-45.0); ABG PH 7.315 (7.350-7.450); ABG PO2 63.1 mmHg (75.0-100.0); AaDO2 598.4 mmHg; COHb 0.3 % (0.5-1.5); MetHb 0.2 % (0.0-1.5); O2Hb 91.7 % (94.0-97.0); SITE, ABG Right Radial; VENT MODE, BG NRB MASK
[2017-11-13] MEDS: ZINC SULFATE 220 MG CAPSULE PO SCH (09:00)
[2017-11-13] MEDS: PANTOPRAZOLE 40 MG VIAL IV SCH (10:02)
[2017-11-13] MEDS: VALPROATE 250 MG in IV D5W 100 ML IV SCH ×2 (10:02→21:14)
[2017-11-13 11:34] LABS: LYMPHOCYTES % (MANUAL) 4 % (16-48); MONOCYTES % (MANUAL) 2 % (0-11.0); NEUTROPHILS % (MANUAL) 94 (42-76)
[2017-11-13 12:00] VITALS: BP 83/32
[2017-11-13] MEDS: MORPHINE SULFATE INJ 4 MG/ML DISP.SYRIN IV PRN (12:00)
[2017-11-13 16:00] VITALS: BP 96/36
[2017-11-13 20:00] VITALS: BP 98/40
--- NOTE | 2017-11-13 20:00 | NUR ---
RN INITIAL NOTES PT IN BED WITH EYES CLOSED. RESPONSIVE TO PAIN. HOB ELEVATED HIGH FOWLERS FOR INCREASED LUNG EXPANSION. PT ON BIPAP. BREATHING REMAINS EVEN HOWEVER IS TACHYPNEIC WITH RESPIRATIONS AT 24-26 BREATHS/MIN. IV TO LFA PATENT AND INTACT RUNNING IVF ORDERED. BED IN LOW/LOCKED POSITION WITH CALL LIGHT IN REACH AND SIDE RAILS UPX2. WILL CONT TO MONITOR PT.
--- NOTE | 2017-11-13 23:15 | NUR ---
RT NOTE: PT RECEIVED ON BIPAP WITH NOTED SETTING. BIPAP PLUGGED INTO RED OUTLET. ALARMS SET AND AUDIBLE. AMBU BAG AT HOB. SAT 92-95%. WILL CONT TO MONITOR PT.
[2017-11-13 23:21] VITALS: BP 98/40
[2017-11-14] VITALS: BP 108/36
[2017-11-14] MEDS: NAFCILLIN 2 G in IV D5W 50 ML IV SCH ×3 (00:39→12:48)
[2017-11-14] MEDS: PIPERACILLIN /TAZOBACTAM 3.375 G in IV D5W 50 ML IV SCH ×3 (00:45→13:20)
[2017-11-14 04:00] VITALS: BP 101/57
[2017-11-14 06:40] LABS: HEMATOCRIT 27 % (39-51); HEMOGLOBIN 8.9 g/dL (13.5-17.5); LYMPHOCYTES # (AUTO) 0.4 /CMM (0.8-4.8); LYMPHOCYTES % (AUTO) 1.8 % (20.0-44.0); MEAN CORPUSCULAR HEMOGLOBIN 31 PG (26.0-33.0); MEAN CORPUSCULAR HGB CONC 33 g/dl (31.0-36.0); MEAN CORPUSCULAR VOLUME 95 fL (80-96); MONOCYTES # (AUTO) 0.1 /CMM (0.1-1.30); MONOCYTES % (AUTO) 0.3 % (2.0-12.0); NEUTROPHILS % (AUTO) 97.9 % (43.0-81.0); PLATELET COUNT (AUTO) 183 /CMM (150-450); RDW COEFFICIENT OF VARIATION 16.8 (11.5-15.0); RED BLOOD CELL COUNT(AUTO) 2.88 MIL/uL (4.5-6.0); WHITE BLOOD COUNT (AUTO) 22.5 K/uL (4.3-11.0)
[2017-11-14 07:00] LABS: CARBON DIOXIDE 25 mmol/L (21-32); CHLORIDE 114 mmol/L (98-107); CREATININE 3.2 mg/dL (0.6-1.3); GLUCOSE 173 mg/dL (74-106); POTASSIUM 3.7 mmol/L (3.5-5.1); SODIUM SERUM 152 mmol/L (136-145); UREA NITROGEN, BLOOD 63 mg/dL (7-18)
[2017-11-14 08:00] VITALS: BP 103/44
--- NOTE | 2017-11-14 08:00 | NUR ---
RN CLOSING NOTES PT IN BED WITH EYES CLOSED. RESPONSIVE TO PAIN. HOB ELEVATED HIGH FOWLERS FOR INCREASED LUNG EXPANSION. PT ON BIPAP. BREATHING REMAINS EVEN HOWEVER IS TACHYPNEIC WITH RESPIRATIONS AT 24-26 BREATHS/MIN. IV TO LFA PATENT AND INTACT RUNNING IVF ORDERED. BED IN LOW/LOCKED POSITION WITH CALL LIGHT IN REACH AND SIDE RAILS UPX2. WILL ENDORSE TO AM RN.
[2017-11-14] MEDS ORDERED: IV D5/0.45 NACL 1,000 ML IV PRN (10:00)
[2017-11-14] MEDS: PANTOPRAZOLE 40 MG VIAL IV SCH (10:47)
[2017-11-14] MEDS: ZINC SULFATE 220 MG CAPSULE PO SCH (10:53)
[2017-11-14] MEDS: VALPROATE 250 MG in IV D5W 100 ML IV SCH (10:57)
--- NOTE | 2017-11-14 11:43 | NUR ---
RT NOTE: PATIENT NOTED TO HAVE PRESSURE SORE AT THE BRIDGE OF THE NOSE. IMMEDIATELY REPORTED TO CHARGE NURSE (POLINA BIRD). PLACED 2 MEPILEX ON THE BRIDGE OF THE NOSE. ALSO REPLACED MEDIUM MASK WITH A LARGE MASK. CHARGE NURSE AWARE.
[2017-11-14 12:00] VITALS: BP 94/50
--- NOTE | 2017-11-14 12:17 | NUR ---
PATIENT PLACED ON NON-REBREATHER MASK PER MD ORDER, WITH [address] ON THE BRIDGE OF PATIENT'S NOSE. CHARGE NURSE(MARGE) NOTIFIED.
[2017-11-14] MEDS: MORPHINE SULFATE INJ 4 MG/ML DISP.SYRIN IV PRN (13:28)
--- NOTE | 2017-11-14 13:56 | NUR ---
PATIENT REMAINS ON NON-REBREATHER MASK PER MD ORDER, WITH [address] ON THE BRIDGE OF PATIENT'S NOSE. CHARGE NURSE(MARGE) AWARE.
[2017-11-14 16:00] VITALS: BP 97/44
[2017-11-14] MEDS ORDERED: MORPHINE SULFATE PF DRIP 250 MG in IV D5W 240 ML IV PRN (16:00)
[2017-11-14] MEDS ORDERED: LORAZEPAM INJ 2 MG/ML VIAL IV PRN (16:00)
[2017-11-14] MEDS ORDERED: ACETAMINOPHEN 650 MG/SUPP.RECT RC PRN (16:00)
[2017-11-14] MEDS ORDERED: MORPHINE SULFATE 30 MG in IV NS 0.9% 28 ML, PCA TOTAL VOLUME 1 BAG IV PRN ×3 (16:30)
--- NOTE | 2017-11-14 17:46 | NUR ---
spoke with [facility] a new contract [phone],[facility] phone number [phone].
--- NOTE | 2017-11-14 18:40 | NUR ---
Nurses Note: Charge Nurse Phylicia and second nurse, myself started the morphine at 2 mg per hour. TRIMMER SORTER pump has 250 mg in 250 cc, morphine prepared by pharmacy is 28 mg in 30 cc. IV D5 1/2 started earlier, but stopped when morphine and TRIMMER SORTER pumped arrived on floor. Morphine drip will last 12.5 hours. Patient is on comfort measures only. Patient has non rebreather mask pulse ox 93%
--- NOTE | 2017-11-14 20:00 | NUR ---
MS RN NOTES PT LETHARGIC. NOT IN ANY DISTRESS. NO SOB NOTED. NO S/SX OF PAIN OR DISCOMFORT AT THIS TIME. WITH MORPHINE DRIP INFUSING WELL AT 2MG/HR. ON COMFORT MEASURES ONLY. WILL CONTINUE TO MONITOR.
--- NOTE | 2017-11-14 22:00 | NUR ---
MS RN NOTES PT STILL LETHARGIC. ON COMFORT MEASURES ONLY. NOT IN ANY DISTRESS. NO SOB NOTED. WITH MORPHINE DRIP INFUSING WELL. WILL CONTINUE TO MONITOR.
--- NOTE | 2017-11-14 23:30 | NUR ---
MS RN NOTES [facility] CALLED. NOTIFIED HIM RE PT'S CONDITION. PROVIDED [facility] FOR THE PT. WILL CONTINUE TO MONITOR.
--- NOTE | 2017-11-14 23:42 | NUR ---
MS RN NOTES PT NOTED WITH GIRISH NEW BREATHING. RESPIRATIONS 25/HR. INCREASED MORPHINE DRIP TO 3MG/HR FOR COMFORT. ATIVAN GIVEN ORDERED FOR COMFORT. WILL CONTINUE TO MONITOR.
--- NOTE | 2017-11-15 00:30 | NUR ---
MS RN NOTES PT AT 0015. PRONOUNCED BY GRACE VYAS RN. NOTIFIED DR. VASQUEZ.
--- NOTE | 2017-11-15 00:45 | NUR ---
MS RN NOTES [facility] NOTIFIED. . SPOKE WITH
--- NOTE | 2017-11-15 01:00 | NUR ---
MS RN NOTES CALLED [facility]. NOTIFIED THEM RE PT'S . ETA IS 2 TO 2.5 HRS
--- NOTE | 2017-11-15 01:20 | NUR ---
MS RN NOTES [facility] NOTIFIED.
== END 2017-11-15 00:15 | disposition expired | DRG 871 ==
LOC: ER 11:23 → TELE-TD 15:48 → MEDSG1 11-09 08:20 → MEDSG2 11-09 21:46 → MEDSG1 11-09 23:45 → TELE1 11-13 10:12
PROVIDERS: ADMIT Internal Medicine; ATTEND Internal Medicine
DX: A41.9 Sepsis, unspecified organism (principal); E43 Unspecified severe protein-calorie malnutrition; J96.01 Acute respiratory failure with hypoxia; N17.0 Acute kidney failure with tubular necrosis; G93.41 Metabolic encephalopathy; J15.9 Unspecified bacterial pneumonia; E87.0 Hyperosmolality and hypernatremia; E87.2 Acidosis; E88.09 Other disorders of plasma-protein metabolism, not elsewhere classified; Z51.5 Encounter for palliative care; J44.0 Chronic obstructive pulmonary disease with (acute) lower respiratory infection; Z68.1 Body mass index [BMI] 19.9 or less, adult; I11.0 Hypertensive heart disease with heart failure; I50.9 Heart failure, unspecified; D63.8 Anemia in other chronic diseases classified elsewhere; E86.0 Dehydration; E78.5 Hyperlipidemia, unspecified; F03.90 Unspecified dementia, unspecified severity, without behavioral disturbance, psychotic disturbance, mood disturbance, and anxiety; F20.9 Schizophrenia, unspecified; K21.9 Gastro-esophageal reflux disease without esophagitis; Z66 Do not resuscitate; L98.8 Other specified disorders of the skin and subcutaneous tissue; L89.621 Pressure ulcer of left heel, stage 1; L89.611 Pressure ulcer of right heel, stage 1; F09 Unspecified mental disorder due to known physiological condition; B95.61 Methicillin susceptible Staphylococcus aureus infection as the cause of diseases classified elsewhere; G40.909 Epilepsy, unspecified, not intractable, without status epilepticus; M85.80 Other specified disorders of bone density and structure, unspecified site; Z96.649 Presence of unspecified artificial hip joint
CPT/HCPCS: 36415; 36600; 71010-TC; 80048-TC; 80053-TC; 80076-TC; 80202-TC; 81000-TC; 82803-TC; 83605-TC; 83735-TC; 84100-TC; 84484-TC; 85025-TC; 85730-TC; 87040-TC; 87081-TC; 87086-TC; 94660; A4216; A4606; C9113; J1956; J2060; J2270; J2274; J2543; J3370; J3480; J3490; J7030; J7040; J7060; J7070; Z7610